=== PATIENT | female | born 1995 | race Caucasian/White ===

== ENCOUNTER 2022-08-31 09:21 | Outpatient (CLI) | payer OTHER, SELFPAY ==
--- NOTE | 2022-09-09 20:50 | WPDHOMESLEEP ---
Sleep Study - Home Unattended Date of Study: 08/31/22 Ordering Provider: Janneth Morris NP Interpreting Provider: Taisha Torres, DO Home Sleep Study Type: Watch PAT Height: 1.63 m Weight: 102.058 kg Body Mass Index: 38.6 Neck Circumference (inches): 15 Iva: 15 Reason for Sleep Study Difficulty staying asleep Sleep History The patient is a 27-year-old female with anxiety and history of tobacco use that had a sleep study ordered by her primary care for evaluation of sleep disturbances. The patient occasionally awakens from sleep short breath. She constantly awakens at night with heartburn, belching or cough. She frequently snores and is frequently loud enough others complain. She occasionally has trouble sleeping when she has a cold. He occasionally wakes up gasping for air throughout the night. She frequently has breathing problems at night observed by herself or others. She frequently sweats excessively at night. She frequently has heart palpitations or irregular heartbeats during the night. He rarely falls asleep during the day and rarely falls asleep while driving. She occasionally experiences loss of muscle tone when extremely emotional. She occasionally has trouble at school or work due to sleepiness. She denies sleep paralysis. She frequently experiences vivid dreamlike scenes upon awakening or falling asleep. He occasionally has anxiety of going to sleep. She occasionally has nightmares and frequently remembers her dreams. She frequently has thoughts racing through her mind. She rarely feels sad or depressed. She constantly has anxiety. She frequently has muscular tension. She occasionally notices parts of her body jerk. She denies having crawling and aching feelings in her legs and denies having leg pain during the night. She denies grinding her teeth during sleep rarely awakens morning jaw pain. She is rarely bothered by pain during the day and rarely awakened by pain during the night. She frequently wakes up feeling stiff in the morning. She frequently wakes up with sore or achy muscles. She frequently wakes up with pain in the neck, spine other joints. She goes to bed between 9-930 p.m. on weekdays and weekends. It takes her 30-60 minutes to fall asleep. She wakes up 2-5 times throughout the night for unknown reasons and is able to fall back asleep within 10 minutes. She wakes up at 5:30 a.m. on weekdays and at 9:00 a.m. weekends. She typically gets 6-8 hours of sleep per night. She will stay in bed for less than 15 minutes after waking up in the morning. She currently lives with her , parents and sibling. She does not consume any caffeinated beverages within 2 hours of bedtime. She does not engage in physical exercise before bedtime. She denies reading and watching television before falling asleep. She denies taking naps in the afternoon or the evening. She consumes 16 oz of caffeinated beverage per day. He drinks 16 oz of an alcoholic beverage every 3-4 weeks. She quit smoking cigarettes 6 years ago. She denies recreational drug use. Sleep Procedure The sleep study was completed using [employer] a technically adequate device with seven channels: peripheral arterial tone, actigraphy, body position, snore, respiratory movement, pulse oximetry, sleep staging, and heart rate. Prior to using the device, the patient received verbal and written instructions for its application and was provided with the help desk phone number for additional telephonic instruction with 24-hour availability of qualified personnel to answer questions. The study was scored using CMS guidelines. Sleep Architecture The patient had a total recording time of 7 hours 32 minutes and total sleep time 6 hours 26 minutes. The sleep efficiency was 85.32%. Sleep latency was 19 minutes and REM latency was 130 minutes. The patient had 10 awakenings. The patient spent 56.12% of total sleep time in light sleep, 23.95% of total slee
[2022-09-09 21:01] VITALS: BMI 38.6
== END 2022-09-01 12:12 | disposition home or self-care (01) ==
LOC: ANHCSM 09:22
PROVIDERS: Visit Provider Nurse Practitioner
DX: G47.10 Hypersomnia, unspecified (principal); G47.33 Obstructive sleep apnea (adult) (pediatric)
CPT/HCPCS: 95800

== ENCOUNTER 2024-04-29 17:06 | Emergency (ER) | payer OTHER, SELFPAY ==
--- NOTE | ~2024-04-29 | XR_ITS ---
HISTORY: twisted left ankle today COMPARISON: None TECHNIQUE: 3 views of the left ankle FINDINGS: No acute fracture is identified. Soft tissue swelling along the medial and lateral malleolus. Ossification of the insertion of the Achilles tendon is noted. Bone mineralization is age-appropriate. IMPRESSION: Soft tissue swelling without acute fracture Reviewed, dictated and finalized at location A. [employer] PREVENTIONIST
[2024-04-29 17:30] VITALS: BP 154/98; PULSE 105; RESP 16; TEMP 36.9; O2SAT 99
--- NOTE | 2024-04-29 17:32 | ED.LOWEXIN ---
HPI - Extremity Injury (Lower) General Chief Complaint: Extremity Injury, Lower <Zora Corbin PA-C - Last Filed: 04/30/24 14:48> Stated Complaint: L ANKLE INJURY <LILLIAN Lundberg Last Filed: 04/30/24 14:48> Time Seen by Provider: 04/29/24 17:32 <Zora Corbin PA-C - Last Filed: 04/30/24 14:48> Focused HPI: This is a 28 year old female that presents to the ER for left ankle injury. Sustained just prior to arrival. Reports she fell down a couple of steps and twisted the left ankle. She did not hit her head or lose consciousness. She has not been able to ambulate since without pain. GENERAL: Well-appearing, well-nourished, and in no acute distress. HEAD: Normocephalic, atraumatic. CHEST: Clear to auscultation. ?No respiratory distress. HEART: Regular rate and rhythm.? NEURO: ?Alert and oriented x3. Patient screened in triage and initial orders placed.? ?Additional care and disposition to be based upon?diagnostic testing and treatment. <LILLIAN Lundberg Last Filed: 04/30/24 14:48> Source: patient <LILLIAN Ng Last Filed: 04/29/24 21:01> Mode of arrival: ambulatory <LILLIAN Ng Last Filed: 04/29/24 21:01> Limitations: no limitations <LILLIAN Ng Last Filed: 04/29/24 21:01> History of Present Illness HPI Narrative: Agree with triage note above <LILLIAN Ng Last Filed: 04/29/24 21:01> Related Data Home Medications: Home Medications ?Medication ?Instructions ?Recorded ?Confirmed ?Last Taken ?Type cholecalciferol (vitamin D3) 50 50 mcg PO DAILY 06/28/22 07/27/22 Unknown History mcg (2,000 unit) capsule multivitamin (Daily Multi-Vitamin 1 tablet PO DAILY 11/17/23 Unknown History tablet) <LILLIAN Lundberg Last Filed: 04/30/24 14:48> Allergies/Adverse Reactions: Allergies Allergy/AdvReac Type Severity Reaction Status Date / Time nickel Allergy Mild Rash Verified 04/29/24 17:06 <Zora Corbin PA-C - Last Filed: 04/30/24 14:48> Review of Systems Review of Systems: All systems as dictated in HPI <Nitish Liu PA-C - Last Filed: 04/29/24 21:01> PMFSH Past Medical History Medical History: Medical History (Updated 04/30/24 @ 00:01 by Ros Santiago) Heavy menses MARGARET (obstructive sleep apnea) Vitamin D deficiency Anxiety (~11/2019) <LILLIAN Lundberg Last Filed: 04/30/24 14:48> Surgical History Surgical History: Surgical History Hx of tonsillectomy (~1998) <Zora Corbin PA-C - Last Filed: 04/30/24 14:48> Family History Family History: Family History Mother Asthma Father Hypertension Grandparent , 51 Cancer Ovarian cancer Colon cancer Grandparent Acute myocardial infarction Other Dementia <Zora Corbin PA-C - Last Filed: 04/30/24 14:48> Social History Social History: Social History Social History: 1-2 cups of coffee per day Smoking packs per day: 0.1 Smoking cigarettes per day: 2.0 Smoking status: Former smoker Smoking end date: 04/24/16 Alcohol intake: current Alcohol use details: occasionally Substance use: never Substance use type: does not use Lack of Transportation: No Lack of Food: Never True Current Housing: I Have Housing Concerned About Future Housing: No Difficulty Paying Gas/Electric Bills: No Difficulty Paying for Meds: No Currently Unemployed: No Education: Master's Degree or Higher Difficulty w/ Childcare or Family Care: No <Zora Corbin PA-C - Last Filed: 04/30/24 14:48> Exam Narrative: GENERAL: Well-appearing, well-nourished, and in no acute distress. HEAD: Normocephalic, atraumatic. MSK: Left ankle with moderate swelling and difficulty with range of motion. No bruising or crepitus. Neurovascularly intact distally. Tender throughout the left ankle joint Benign right ankle SKIN: Warm, dry, no rash. NEURO: Alert and oriented x4. No focal deficits. PSYCH: Normal mood and affect. <Nitish Liu PA-C - Last Filed: 04/29/24 21:01> Course Vital Signs Vital signs: Vital Signs Temperature 98.5 F 04/29/24 17:30 Pulse Rate 105 H 04/29/24 17:30 Respiratory Rate 16 04/29/24 17:30 Blood Pressure 154/98 H 04/29/24 17:30 Pulse Oximetry 99 04/29/24 17:30 Oxygen Delivery Room Air 04/29/24 17:30 Temperature 97.8 F 04/29/24 21:41 Pulse Rate 88 04/29/24 21:41 Respiratory Rate 16 04/29/24 21:41 Blood Pressure 147/96 H 04/29/24 21:41 Pulse Oximetry 99 04/29/24 21:41 Oxygen Delivery Room Air 04/29/24 17:30 <Zora Corbin PA-C - Last Filed: 04/30/24 14:48> Vital Signs Temperature 98.5 F 04/29/24 17:30 Pulse Rate 105 H 04/29/24 17:30 Respiratory Rate 16 04/29/24 17:30 Blood Pressure 154/98 H 04/29/24 17:30 Pulse Oximetry 99 04/29/24 17:30 Oxygen Delivery Room Air 04/29/24 17:30 Temperature 97.8 F 04/29/24 21:41 Pulse Rate 88 04/29/24 21:41 Respiratory Rate 16 04/29/24 21:41 Blood Pressure 147/96 H 04/29/24 21:41 Pulse Oximetry 99 04/29/24 21:41 Oxygen Delivery Room Air 04/29/24 17:30 <LILLIAN Ng Last Filed: 04/29/24 21:01> MDM - Extremity Injury (Lower) MDM Narrative Medical decision making narrative: This is a 28-year-old female who presents to the ED for chief complaint of left ankle injury. Vitals are normal. Exam remarkable for the above. Left ankle x-rays are negative for acute fracture. Consistent with ankle sprain. Crutches and Humberto wrap given here. Patient was also given dose of Motrin and Tylenol here. Patient will be discharged in stable condition. Supportive measures discussed and return precautions given. Patient is understanding and agreeable with plan for discharge with PCP follow-up. <Nitish Liu PA-C - Last Filed: 04/29/24 21:01> Imaging Data Radiologist's impression: ITS Impressions Ankle X-Ray 04/29/24 18:23 IMPRESSION: Soft tissue swelling without acute fracture <LILLIAN Lundberg Last Filed: 04/30/24 14:48> Critical Care Time Critical Care Time Critical Care Time: No <LILLIAN Lundberg Last Filed: 04/30/24 14:48> Discharge Plan Discharge Clinical Impression: Ankle sprain and strain <LILLIAN Lundberg Last Filed: 04/30/24 14:48> Patient Disposition: Home, Self-Care <LILLIAN Lundberg Last Filed: 04/30/24 14:48> Condition: Stable <LILLIAN Lundberg Last Filed: 04/30/24 14:48> Instructions: Antibiotic Form, Ankle Sprain (ED) <LILLIAN Lundberg Last Filed: 04/30/24 14:48> Additional Instructions: Your exam today is reassuring. There is no fracture. This is probably an ankle sprain which will take several weeks to fully heal. Use crutches as needed and progress to weight-bearing as tolerated. Continue with ibuprofen 600 mg and Tylenol 500 mg at home for pain and swelling. If you have any new or worsening symptoms please return to the ER for further evaluation. <LILLIAN Lundberg Last Filed: 04/30/24 14:48> Patient Language: [place]orese <LILLIAN Lundberg Last Filed: 04/30/24 14:48> Prescriptions: No Action cholecalciferol (vitamin D3) 50 mcg (2,000 unit) capsule 50 mcg PO DAILY multivitamin [Daily Multi-Vitamin] Tablet 1 tablet PO DAILY bupropion HCl [Wellbutrin XL] 300 mg tablet extended release 24 hr 300 mg PO QAM Qty: 30 5RF <Zora Corbin PA-C - Last Filed: 04/30/24 14:48> Follow-up/Referrals: Leonard Rayo MD [Primary Care Provider] - <Zora Corbin PA-C - Last Filed: 04/30/24 14:48> Time of Disposition: 21:01 <Zora Corbin PA-C - Last Filed: 04/30/24 14:48> 21:01 <Nitish Liu PA-C - Last Filed: 04/29/24 21:01>
[2024-04-29] MEDS: ACETAMINOPHEN 325 MG TABLET 650 MG PO (21:31)
[2024-04-29] MEDS: IBUPROFEN 600 MG TABLET PO (21:31)
[2024-04-29 21:41] VITALS: BP 147/96; PULSE 88; RESP 16; TEMP 36.6; O2SAT 99
--- OUTSIDE RECORDS SUMMARY | 2024-05-06 03:51 | XMS_ITS | Clinical Summary ---
Author Organization [facility] Address [address] [place] [address] Care Team Providers Care Director Distribution Name Role Phone Unavailable Primary Care Provider Unavailabl e Source Comments [facility],non-owned Affiliates and Associated Physician Practices is amultiple site organization consisting of ambulatory clinics and hospital sitesin [place], [place], [place] and [place]. This disclosure is being madepursuant to the Care Everywhere program and may not contain all information available regarding this patient. Last updated 18.[facility] [employer] Allergies No known active allergies Medications Be aware that medications may not be up to date on this document. Always verify current medications with the patient. No known medications Active Problems Problem Noted Date Diagnosed Date BMI 26.0-26.9,adult 10/08/2014 Immunizations Name Administration Dates Next Due DPT 11/16/2001, 8,02/20/1997,1996, 1996 HEP B VACCINE, PED/ADOL 05/23/1997,1996, HIB BOOSTER 02/27/1998,02/20/1997,1996 ,1996 MENINGOCOCCAL CONJUGATE (MCV4P) 10/08/2014 MMR 11/16/2001,08/22/1997 POLIO IPV 11/16/2001 POLIO OPV 02/20/1997,1996,1996 PPD 11/16/2001,08/22/1997 TDAP (7yrs+) 11/21/2016,11/10/2006 VARICELLA 11/10/2006,11/28/1997 Social History Tobacco Use Types Packs/Day Years Used Date Smoking Tobacco: Never Smokeless Tobacco: Never Alcohol Use Standard Drinks/Week Comments Not Asked 0 (1 standard drink = 0.6 oz pur e alcohol) Sex and Gender Information Value Date Recorded Sex Assigned at Not on file Gender Identity Not on file Sexual Orientation Not on file Last Filed Vital Signs Vital Sign Reading Time Taken Comments Blood Pressure 138/62 11/21/2016 10:05 AM CDT Pulse 117 04/24/2016 10:09 AM [facility] UN[facility] NURSE Temperature 36.9 ??C (98.4 ??F) 11/21/2016 10:05 AM C DT Respiratory Rate 16 04/24/2016 10:09 AM NEONATAL INTENSIVE CARE UNIT NURSE Oxygen Saturation - - Inhaled Oxygen Concentration - - Weight 81.5 kg (179 lb 9.6 oz) 11/21/2016 10:05 AM CDT Height 161.3 cm (5' 3.5 ) 11/21/2016 10:05 AM CD T Body Mass Index 31.32 11/21/2016 10:05 AM CDT Plan of Treatment Health Maintenance Due Date Last Done Comments PAP SMEAR 1996 HIV SCREENING 08/20/2011 HEPATITIS C SCREENING 08/15/2014 COVID-19 VACCINE ( season) 2023 INFLUENZA VACCINE (#1) 2023 DEPRESSION SCREENING 04/24/2024 DTAP/TDAP/TD VACCINES (8 - Td or Tdap) 11/21/2026 11/21/2016, 11/10/2006, 11/16/2001, Additional history exists ZOSTER VACCINE (1 of 2) 2046 HEPATITIS B VACCINE Completed 05/23/1997, 1996, 1996 HIB VACCINE Completed 02/27/1998, 01/24, 1996, Additional history exists MENINGOCOCCAL VACCINE Completed 10/08/2014 HPV VACCINE Discontinued MENINGOCOCCAL (Group B) VACCINE Aged Out No longer eligible based on patient's age to complete this topic PNEUMOCOCCAL VACCINE Aged Out No long er eligible based on patient's age to complete this topic Goals Goal Patient Goal Type Associated Problems Recent Progress Patient-Stated? Author Exercise 3X per week (30 min per time) Exercise No Alondra Wills MD Note: Caring for Your Overweight Child Get Moving: ? ? It is recommended that children and teens get physical activity for at least 1 hour per day on most (or better yet, all) days of the week. That may sound like a lot, especially if your child is not getting any physical activity now. But physical activity means more than exercise. It can mean playing games in the backyard, or washing the car. It can mean picking up leaves, or walking the dog. Add the healthy habit of physical activity to your family? s schedule. ? ? When children take off weight through dieting alone, 80 percent of the loss is from fatty tissue and 20 percent is from muscle. Adding weight-resistance training to an exercise routine preserves the muscle tissue. Virtually every ounce dropped comes from fat. Once an adolescent meets her goal, regular exercise is essential for maintaining the desired weight. Where can I go for more information? [place] [employer] ( ) www.aap.org HealthyChildren.org www.healthychildren.org U.S. Department of Health and Human Services www.hhs.gov Website and free downloadable nadja for smartphones: http://www.[employer]/ Use safety retraint in car Lifestyle On track( 017 10:08 AM CDT) No Alondra Wills MD Note: ?? Seat belt laws should apply to all vehicle occupants JUNIEKRISTAN Adan Personal/Famil y 1995 [place] EM[place] CEJA [address] [place] [id number]
--- OUTSIDE RECORDS SUMMARY | 2024-05-06 03:51 | XMS_ITS | Encounter Summary ---
Author Organization [facility] Address [address] [place] [address] Care Team Providers Care Platform Engineer Name Role Phone Unavailable Primary Care Provider Unavailabl e Reason for Visit * Reason Comments Complete Physical Exam college physical Encounter Details Date Type Department Care Team (Late st Contact Info) Description 10/08/2014 9:30 AM CDT Office Visit [facility] - Pediatrics [address] [place] [phone] Alondra Wills MD [address] [place] [phone] Routine general medical examination at a health care facility (Primary Dx); Need for other specified prophylactic vaccination against single bacterial disease; BMI 26.0-26.9,adult Social History Tobacco Use Types Packs/Day Years Used Date Smoking Tobacco: Never Smokeless Tobacco: Never Alcohol Use Standard Drinks/Week Comments Not Asked 0 (1 standard drink = 0.6 oz pur e alcohol) Sex and Gender Information Value Date Recorded Sex Assigned at Not on file Gender Identity Not on file Sexual Orientation Not on file documented as of this encounter Last Filed Vital Signs Vital Sign Reading Time Taken Comments Blood Pressure 128/68 10/08/2014 9:37 AM CDT Pulse 100 10/08/2014 9:37 AM CDT Temperature 36.6 ??C (97.9 ??F) 10/08/2014 9:37 AM CD T Respiratory Rate - - Oxygen Saturation - - Inhaled Oxygen Concentration - - Weight 70.4 kg (155 lb 3.2 oz) 10/08/2014 9:37 A M CDT Height 162.6 cm (5' 4 ) 10/08/2014 9:37 AM CDT Body Mass Index 26.64 10/08/2014 9:37 AM CDT Body Mass Index Percentile 88.20% 10/08/2014 9:3 7 AM CDT Growth Chart: CDC (Girls, 2- 20 Years) documented in this encounter Patient Instructions * Patient Instructions* Charlotte Alfred RN - 10/08/2014 9:40 AM CDT YOUR GROWING CHILD: ADOLESCENT Child???s Name: Dylan Ceja Today???s Date: 10/08/2014 Blood pressure percentiles are 95% systolic and 58% diastolic based on 2000 NHANES data. Wt Readings from Last 3 Encounters: 10/08/14 70.398 kg (155 lb 3.2 oz) (87 %*, Z = 1.14) 12/17/13 78.654 kg (173 lb 6.4 oz) (94 %*, Z = 1.60) 11/29/10 73.12 kg (161 lb 3.2 oz) (95 %*, Z = 1.64) * Growth percentiles are based on CDC 2-20 Years data. Ht Readings from Last 3 Encounters: 10/08/14 1.626 m (5' 4 ) (47 %*, Z = -0.08) 11/29/10 1.6 m (5' 3 ) (44 %*, Z = -0.14) * Growth percentiles are based on CDC 2-20 Years data. Body mass index is 26.63 kg/(m^2). 88%ile (Z=1.18) based on CDC 2-20 Years BMI-for-age data using vitals from 10/08/2014. 87%ile (Z=1.14) based on CDC 2-20 Years yrazco-vnw-rvk data using vitals from 10/08/2014. 47%ile (Z=-0.08) based on CDC 2-20 Years jvhmmrr-udp-pdx data using vitals from 10/08/2014. IMMUNIZATIONS At the time of high school physical you will receive a Tdap booster. Other immunizations which we recommend, but that are not required are Menactra (protects again one type of bacterial meningitis), Gardisil (protects girls and women against Human Papilloma Virus), and Hepatitis A vaccine if not already given. PROMOTION OF HEALTHY AND SAFE HABITS: Try to get 8 hours of sleep a night. Engage in moderately strenuous to vigorous physical activity (e.G walking, biking, aerobics for 30 - 60 minutes at least three times a week). Limit TV viewing, computer and video games. Practice time management skills. INJURY AND VIOLENCE PREVENTION: Always wear safety belt when driving or riding in a car. If you are driving, insist that your passengers wear safety belts. Follow the speed limit and drive responsibly. Concentrate when driving and avoid distractions(e.g talking on the phone, texting, playing loud music,eating). Do not drink alcohol, especially when driving, swimming, boating or operating farm equipment or other machinery. Plan to ride with a designated auto transport driver or to call for a ride if drinking. Write and sign a no drinking and driving contract with your parents. Learn how to swim(if you haven't already learned). Learn first aid and CPR. Reduce your risk of developing skin cancer by limiting time in the sun and applying sunscreen before going outside. Avoid tanning salons. Help your parents test smoke alarms in your home to be sure they work properly, and help change the batteries yearly. Know what to do in case of fire or other emergency. Review fire safety plans at home. Always wear a helmet when riding on a motorcycle, bike, or all-terrain vehicle. However, ATV's and motorcycles are dangerous, even with a helmet. Wear protective gear(e.g eye protection, mouth guard,helmet, knee and elbow pads) for sports and other physical activities such as in-line skating. Wearappropriate protective gear at work and follow job safety procedures. Avoid high noise levels, especially when using ear phones. Do not carry or use a weapon of any kind. Develop skills in conflict resolution, negotiation, and dealing with anger constructively. Learn techniques to protect yourself from physical, emotional, and sexual abuse or rape. Seek help if you are physically or sexually abused or fear that you are in danger. MENTAL HEALTH: Take on new challenges that will increase your self confidence. Continue to develop your sense of identity, clarifying your values and beliefs. Accept who you are and enjoy both the child and adult in you. Trust your own feelings, and also listen to the ideas of good friends and valued adults. Seekhelp if you often feel angry, depressed, or hopeless. Learn how to deal with stress. Set reasonablebut challenging goals. Understand the importance of your spiritual needs and try to fulfill them. NUTRITION: Choose and prepare a variety of healthy foods. Eat three nutritious meals a day at regularly scheduled times; breakfast is especially important. Select a nutritious lunch from the school cafeteria orpack a balanced lunch. Choose plenty of fruits and vegetables;breads, cereals, and other whole grain products; low-fat dairy; lean meats, chicken, fish and foods prepared with little or not fat. Include foods rich in calcium and iron in your diet. Choose nutritious snacks that are rich in complex carbohydrates. Limit high-fat or low-nutrient foods and beverages such as candy, chips, or soft drinks. Achieve and maintain a healthy weight. Manage weight through eating habits and regular physical ac tivity. ORAL HEALTH: [place] your teeth twice a day with a pea-size amount of fluoridated toothpaste, and floss between your teeth daily. Schedule a dental appointment every 6 months or as advised, ask your dental professional how to handle dental emergencies, especially the loss or fracture of a tooth. Do not smoke or use chewing tobacco. SEXUALITY: Identify a supportive adult who can give you accurate information about sex. Ask the health professional for information on sexual development and maturity, contraception, and prevention of sexually transmitted diseases. Discuss any questions you have. If you are confused or concerned about your sexual feelings( for the same or opposite sex), talk with the health professional or a trusted adult. Recognize that sexual feelings are normal, but having sex should be a jwsr-ogqmxdf-pqt decision. Delay having sex until you and your partner are mature enough to assume responsibility for sexual relations. Share your feelings about sexuality with your partner. Abstaining from sexual intercourse is the safest way to prevent and sexually transmitted diseases, including HIV/AIDS. Learn ways to resist sexual pressures and say no to sex. If you are sexually active, discuss contraceptivemethods and STD prevention with your doctor. Learn about and practice safer sex. Limit the number of partners and use latex condoms and other barriers correctly. PREVENTION OF SUBSTANCE USE/ABUSE: Do not smoke, use smokeless tobacco, drink alcohol, or use drugs, inhalants, diet pills, or steroids. Do not become involved in selling drugs. If you smoke, talk with the health professional about how to stop smoking. If you use drugs or alcohol, discuss this with your health professional and ask for help. Support your friends who choose not to use tobacco, alcohol, drugs, steroids, or diet pills. PROMOTION OF SOCIAL COMPETENCE: Spend time with your family doing things you all enjoy.Participate in social activities, community groups, or team sports.Make sure you understand the limits your parents have set and the consequences they have established for unacceptable behavior. Talk with your family and friends about your strategies and coping mechanisms for handling negative peer pressure. Continue your progress in making independent decisions and understanding the consequences of your behavior. PROMOTION OF RESPONSIBILITY: Respect the rights and needs of others. Follow family rules, such as those for curfews or driving. Share in machine stitcher. Learn about how you can take on new responsibility in your family, peer group, and community. Learn new skills(e.g lifesaving, peer mentoring) that can be useful in helping your friends, familyor community. Talk to your health professional about taking responsibility for you own health and becoming fully informed about preventive health services. PROMOTION OF SCHOOL ACHIEVEMENT: Be responsible for your own school attendance, home work , course selection and extracurricular activities. If you feel frustrated with school or are thinking about dropping out, discuss your feelings with a trusted adult. Identify talents and interests that you want to pursue for a career or for personal enrichment. Make plans for after high school(e.g college options, vocational training, the , other career choices) PROMOTION OF COMMUNITY INTERACTION: Participate in social, oriental orthodox, cultural, volunteer or recreational activities. Advocate for community programs(recreational, athletic, artistic, and educational activities) Talk with friends and family about current events and community responsibilities such as voting, conservation and recycling. Explore your cultural heritage and learn about other cultures. Participate in culturally diverse activities. SUGGESTED INTERNET-SAFETY WEB SITES: Don't consume more than two hour of entertainment media. Avoid having a TV or computer in your room. www.MST: A great site for older teens that includes ways to communicate with peers when they experience online bullying that is not cool . www.Rainbow.org: A site for younger and older teens, as well as parents, with many suggestions oninternet safety www.ipnexus.Pfeffermind Games: A site presented by the [facility] for Missing and Exploited Children with information for kids, teens and parents, much of it focused on avoiding cyber bullying. documented in this encounter Progress Notes * Alondra Wills MD - 10/08/2014 9:54 AM CDT Adolescent WCC Reviewed Nurse's Adolescent Note PHX: overweight Medications: none ROS --has gotten more active in the past year, decreased portion sizes Stomachaches, Headaches: No Constipation/Diarrhea: No Girls: Menses Yes: regular, lasts 6 days Social History: School: going to attend [employer]. Home: will be moving to [place], [place] in November, excited about starting college Activity/Exercise: good Alcohol: denies Drugs:denies Sex:denies Smoking:denies Jnvktpczhk-EGA-7 score : see screening section Physical Exam: Wt Readings from Last 3 Encounters: 10/08/14 70.398 kg (155 lb 3.2 oz) (87 %*, Z = 1.14) 12/17/13 78.654 kg (173 lb 6.4 oz) (94 %*, Z = 1.60) 11/29/10 73.12 kg (161 lb 3.2 oz) (95 %*, Z = 1.64) * Growth percentiles are based on CDC 2-20 Years data. Ht Readings from Last 3 Encounters: 10/08/14 1.626 m (5' 4 ) (47 %*, Z = -0.08) 11/29/10 1.6 m (5' 3 ) (44 %*, Z = -0.14) * Growth percentiles are based on CDC 2-20 Years data. 87%ile (Z=1.14) based on CDC 2-20 Years wfqoye-jcd-iml data using vitals from 10/08/2014. 47%ile (Z=-0.08) based on CDC 2-20 Years hrguihr-yjo-uun data using vitals from 10/08/2014. BP 128/68 mmHg Pulse 100 Temp(Src) 97.9 ??F (Temporal) Wt 70.398 kg (155 lb 3.2 oz) BMI 26.63 kg/m2 Blood pressure percentiles are 95% systolic and 58% diastolic based on 2000 NHANES data. GENERAL: Alert, NAD EYES: PERRLA, EOMI, red reflex bilaterally EARS: TM's wnl NOSE: nasal passages clear NECK: supple, no masses, no lymphadenopathy RESP: clear to auscultation bilaterally CV: RRR, normal S1/S2, no murmurs, clicks, or rubs. ABD: soft, nontender, no masses, no hepatosplenomegaly, normal bowel sounds : normal female exam, Hong V EXTREMITIES: Full range of motion of all extremities SPINE: Straight SKIN: no rashes or lesions Impression: 1. Well child with normal growth and development. 2. BMI >25 3. overweight Plan: Anticipatory guidance discussed included nutrition, safety, dentist, exercise. Vaccines: Meningococcal BMI> 85%: Yes Classification of weight: overweight Blood Pressure interpretation: normal 2/3. Discussed that weight has been decreasing!--keep up the good work Follow up in 1 year. * Charlotte Alfred RN - 10/08/2014 9:40 AM CDT Nurse Adolescent Screen Parental/Patient Concerns: none Diet: Milk 2%, 8 ounces per day. +cheese, yogurt, smoothies Vegetables: good, fruits: good, Dental: regular dental visits? Yes documented in this encounter Plan of Treatment Not on file documented as of this encounter Goals Goal Patient Goal Type Associated Problems [...] Where can I go for more information? [employer] ( ) www.aap.org HealthyChildren.org www.healthychildren.org U.S. Department of Health and Human Services www.hhs.gov Website and free downloadable nadja for smartphones: http://www.[employer] ([place]/ Use safety retraint in car Lifestyle On track( 017 10:08 AM CDT) No Alondra Wills MD Note: ?? Seat belt laws should apply to all vehicle occupants documented as of this encounter Visit Diagnoses Diagnosis Routine general medical examination at a health care facility- Primary Need for other specified prophylactic vaccination against single bacterial disease BMI 26.0-26.9,adult Body Mass Index 26.0-26.9, adult documented in this encounter
--- OUTSIDE RECORDS SUMMARY | 2024-05-06 03:51 | XMS_ITS | Encounter Summary ---
Author Organization [facility] Address [address] [place] [address] Care Team Providers Care Airbrush Artist Photography Name Role Phone Alondra Wills MD Primary Care Provider [phone] Reason for Visit * Reason Onset Date Comments Record Request 11/24/2016 Encounter Details Date Type Department Care Team (Late st Contact Info) Description 11/24/2016 Telephone [facility] - Pediatrics [address] [place] [phone] Alondra Wills MD [address] [place] [phone] Record Request Social History Tobacco Use Types Packs/Day Years Used Date Smoking Tobacco: Never Smokeless Tobacco: Never Alcohol Use Standard Drinks/Week Comments Not Asked 0 (1 standard drink = 0.6 oz pur e alcohol) Sex and Gender Information Value Date Recorded Sex Assigned at Not on file Gender Identity Not on file Sexual Orientation Not on file documented as of this encounter Miscellaneous Notes * Telephone Encounter - Mia Giron RN - 11/24/2016 4:59 PM CDT Done per pt's request. * Telephone Encounter - Meera Craig - 11/24/2016 4:07 PM CDT Pt called requesting for immunization record to be faxed to [facility] at [phone]. No Attn: needed. Thanks documented in this encounter Plan of Treatment [...] Where can I go for more information? [employer] ( ) www.aap.org HealthyChildren.org www.healthychildren.org U.S. Department of Health and Human Services www.hhs.gov Website and free downloadable nadja for smartphones: http://www.Health News.RupeeTimes/ Use safety retraint in car Lifestyle On track( 017 10:08 AM CDT) No Alondra Wills MD Note: ?? Seat belt laws should apply to all vehicle occupants documented as of this encounter Visit Diagnoses Not on filedocumented in this encounter Care Teams Airbrush Artist Photography Relationship Specialty Start Date End Date Alondra Wills MD PCP - General Pediatrics 11/21/16 11/29/18 documented as of this encounter
--- OUTSIDE RECORDS SUMMARY | 2024-05-06 03:51 | XMS_ITS | Clinical Summary ---
Author Organization [facility] Address [address] [place] [address] Care Team Providers Care Imagery Intelligence Name Role Phone Provider, None Primary Care Provider Unavailabl e Allergies No known active allergies Medications FLUoxetine (PROzac) 20 MG Capsule TAKE 1 CAPSULE BY MOUTH ONCE DAILY 04/25/2021 Active Active Problems No known active problems Social History Tobacco Use Types Packs/Day Years Used Date Smoking Tobacco: Never Smokeless Tobacco: Never Comments No Sex and Gender Information Value Date Recorded Sex Assigned at Not on file Legal Sex 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 Gender Identity Not on file Sexual Orientation Not on file Last Filed Vital Signs Vital Sign Reading Time Taken Comments Blood Pressure 135/84 07/21/2021 2:30 PM CDT Pulse 84 07/21/2021 2:30 PM CDT Temperature 36.9 ??C (98.4 ??F) 04/30/2021 5:12 PM CS T Respiratory Rate 20 07/21/2021 2:30 PM CDT Oxygen Saturation 97% 07/21/2021 2:30 PM CDT Inhaled Oxygen Concentration - - Weight 93 kg (205 lb) 07/21/2021 2:30 PM CDT Height 162.6 cm (5' 4 ) 07/21/2021 2:30 PM CDT Body Mass Index 35.19 07/21/2021 2:30 PM CDT Plan of Treatment Health Maintenance Due Date Last Done Comments Hepatitis C Virus (HCV) Screening 1996 Pap Smear 2017 Influenza Immunization (#1) 2023 SARS-COV-2 Immunization ( season) 2023 06/30/2020, 06/09/2020 Respiratory Syncytial Virus (RSV) Immunization (Adult) (1 - 1-dose 75+ series) 08/20/2071 Hepatitis B Immunization Completed 998, 1996, 1996 Meningococcal Immunization (ACWY) Completed 10/08/2014 DTaP/Tdap/Td Immunization Discontinued 2016, 11/10/2006 TdaP Immunization Completed 11/21/2016, 11/10/2006 Pneumococcal Immunization Combined Aged Out No longer eligible based on patient's age to complete this topic Rotavirus Immunization Aged Out No lo nger eligible based on patient's age to complete this topic Insurance [facility] Care Teams Imagery Intelligence Relationship Specialty Start Date End Date Provider, None KARTHIKEYAN PCP - General 05/01/21
--- OUTSIDE RECORDS SUMMARY | 2024-05-06 03:51 | XMS_ITS | Referral Summary ---
Author Organization [facility] Address [address] [place] [address] Care Team Providers Care Mobile Application Engineer Name Role Phone Unavailable Primary Care Provider Unavailabl e Source Comments [facility],non-owned Affiliates and Associated Physician Practices is amultiple site organization consisting of ambulatory clinics and hospital sitesin [place], [place], [place] and [place]. This disclosure is being madepursuant to the Care Everywhere program and may not contain all information available regarding this patient. Last updated 18.[facility] Allergies No known active allergies Medications Be [...] AM CDT Pulse 117 04/24/2016 10:09 AM CASTING INSPECTOR Temperature 36.9 ??C (98.4 ??F) 11/21/2016 10:05 AM C DT Respiratory Rate 16 04/24/2016 10:09 AM CASTING INSPECTOR Oxygen Saturation - - Inhaled Oxygen Concentration - - Weight 81.5 kg (179 lb 9.6 oz) 11/21/2016 10:05 AM CDT Height 161.3 cm (5' 3.5 ) 11/21/2016 10:05 AM CD T Body Mass Index 31.32 11/21/2016 10:05 AM CDT Plan of Treatment Not on file Goals Goal Patient Goal Type Associated Problems [...] Where can I go for more information? [employer] ( ) www.aap.org HealthyChildren.org www.healthychildren.org U.S. Department of Health and Human Services www.hhs.gov Website and free downloadable nadja for smartphones: http://www.Eventap/ Use safety retraint in car Lifestyle On track( 017 10:08 AM CDT) Alondra Workman MD Note: ?? Seat belt laws should apply to all vehicle occupants KRISTAN CEJA Personal/Famil y 1995 [address] [place] [address]
--- OUTSIDE RECORDS SUMMARY | 2024-05-06 03:51 | XMS_ITS | Encounter Summary ---
Author Organization [facility] Address [address] [place] [address] Care Team Providers Care Export Packer Name Role Phone Anika Bob MD Unavailable Reason for Referral * Evaluate & Treat Specialty Diagnoses / Procedures Referred By Contac t Referred To Contact Anika Bob MD [address] [place] [address] Joselito Sullivan MD [address] [place] [address] [place] [address] Referral ID Status Reason Start Date Expiration Date V isits Requested Visits Authorized Specialty Services Required Reason for Visit * Reason Comments Pain Wrist right Encounter Details Date Type Department Care Team (Late st Contact Info) Description 11/09/2009 4:10 PM CDT Office Visit [facility] - Pediatrics [address] [place] [phone] Anika Bob MD [address] [place] [address] Wrist Pain (Primary Dx) Social History Tobacco Use Types Packs/Day Years Used Date Smoking Tobacco: Never Assessed Sex and Gender Information Value Date Recorded Sex Assigned at Not on file Gender Identity Not on file Sexual Orientation Not on file documented as of this encounter Last Filed Vital Signs Vital Sign Reading Time Taken Comments Blood Pressure - - Pulse - - Temperature - - Respiratory Rate - - Oxygen Saturation - - Inhaled Oxygen Concentration - - Weight 81.7 kg (180 lb 3.2 oz) 11/09/2009 4:29 P M CDT Height - - Body Mass Index - - documented in this encounter Progress Notes * Anika Bob MD - 11/09/2009 4:27 PM CDT SUBJECTIVE: Dylan Ceja is a 14 y.o. female who complains of pain to the dorsum of the right wrist for about 3 weeks. Unsure what happened to it. Doesn't remember an injury. She was seen in the [facility] [place] and xrays were normal. She has been using a wrist splint since then, was seen in the office two weeks ago. Pain improved but then worsened again. OBJECTIVE: Wt 81.738 kg (180 lb 3.2 oz) She appears well, vital signs are normal. There is No swelling and No tenderness over the right wrist. No tenderness otherwise. There are normal distal neurovascular findings. There are no obvious bone deformities or unstable joints. The rest of the extremity is normal. ASSESSMENT: Wrist pain PLAN: rest the injured area as much as practical, referral to hand surgeon for this injury documented in this encounter Plan of Treatment Scheduled Referrals Name Type Priority Associated Diagnoses Orde r Schedule AMB REFERRAL TO PLASTIC SURGERY Outpatient Referral Routine Wrist Pain Ordered: 11/09/2009 documented as of this encounter Visit Diagnoses Diagnosis Wrist pain- Primary Pain in joint, forearm documented in this encounter Care Teams Export Packer Relationship Specialty Start Date End Date Anika Bob MD PCP - Pediatrics 03/26/09 10/07/14 documented as of this encounter
--- OUTSIDE RECORDS SUMMARY | 2024-05-06 03:51 | XMS_ITS | Encounter Summary ---
Author Organization [facility] Address [facility] [facility] [place] [address] Care Team Providers Care Amusement Park Ride Mechanic Name Role Phone Anika Bob MD Unavailable Reason for Visit * Reason Comments Pain right middle finger up to wrist x4 days Encounter Details Date Type Department Care Team (Late st Contact Info) Description 10/27/2009 3:40 PM CDT Office Visit [facility] - Pediatrics [address] [place] [phone] Anika Bob MD [address] [place] [address] Wrist Pain (Primary Dx) Social History [...] Pressure - - Pulse - - Temperature 36.7 ??C (98.1 ??F) 10/27/2009 3:58 PM CD T Respiratory Rate - - Oxygen Saturation - - Inhaled Oxygen Concentration - - Weight 81.4 kg (179 lb 6.4 oz) 10/27/2009 3:58 P M CDT Height - - Body Mass Index - - documented in this encounter Progress Notes * Anika Bob MD - 10/27/2009 4:03 PM CDT SUBJECTIVE: Dylan Ceja is a 14 y.o. female who complains of pain to the right middle finger up to wrist for 4 day(s) pain is mild. Pt seen in ER and dx'd with arthritis. States that it feels better to useace bandage. History of trauma unsure, was jumping on trampoline prior to the pain starting.fall No. Prior history of related problems: no prior problems with this area in the past OBJECTIVE: Temp (Src) 98.1 ??F (Oral) Wt 81.375 kg (179 lb 6.4 oz) She appears well, vital signs are normal. There is No swelling and No tenderness over the right hand and forearm. No tenderness otherwise. There are normal distal neurovascular findings. There are noobvious bone deformities or unstable joints. The rest of the extremity is normal. ASSESSMENT: Right forearm pain- over use injury PLAN: rest the injured area as much as practical, splint ordered F/u in two weeks if not better documented in this encounter Plan of Treatment Not on file documented as of this encounter Visit Diagnoses Diagnosis Wrist pain- Primary Pain in joint, forearm documented in this encounter Care Teams Amusement Park Ride Mechanic Relationship Specialty Start Date End Date Anika Bob MD PCP - Pediatrics 03/26/09 10/07/14 documented as of this encounter
--- OUTSIDE RECORDS SUMMARY | 2024-05-06 03:51 | XMS_ITS | Encounter Summary ---
Author Organization [facility] Address [address] [place] [address] Phone Care Team Providers Care Tailer Off Name Role Phone Unavailable Primary Care Provider Unavailabl e Reason for Visit * Reason Comments Cough Fatigue Sore Throat Encounter Details Date Type Department Care Team (Latest Contact Info) Description 04/30/2021 6:00 PM BOARDER STEAM Urgent Care Visit [facility] [address] [place] [address] Bean, Christina Tadeo, PHARMACY RESOURCE TECH, PLATER SUPERVISOR [address] [place] [address] Exposure to COVID-19 virus (Primary Dx); Cough; Symptoms of upper respiratory infection (URI) Discharge Disposition: Discharged to home or Selfcare Social History Tobacco Use Types Packs/Day Years Used Date Smoking Tobacco: Never Assessed Comments Unknown Sex and Gender Information Value Date Recorded Sex Assigned at Not on file Legal Sex Female 4:21 PM BOARDER STEAM Gender Identity Not on file Sexual Orientation Not on file COVID-19 Exposure Response Date Recorded In the last month, have you been in contact with someone who was confirmed or suspected to have Coronavirus / COVID-19? No / Unsure 04/30/2021 4:24 PM BOARDER STEAM documented as of this encounter Last Filed Vital Signs Vital Sign Reading Time Taken Comments Blood Pressure 131/82 04/30/2021 5:12 PM BOARDER STEAM Pulse 77 04/30/2021 5:12 PM BOARDER STEAM Temperature 36.9 ??C (98.4 ??F) 04/30/2021 5:12 PM CS T Respiratory Rate 20 04/30/2021 5:12 PM BOARDER STEAM Oxygen Saturation 98% 04/30/2021 5:12 PM BOARDER STEAM Inhaled Oxygen Concentration - - Weight 90.7 kg (200 lb) 04/30/2021 5:12 PM BOARDER STEAM Height 162.6 cm (5' 4 ) 04/30/2021 5:12 PM BOARDER STEAM Body Mass Index 34.33 04/30/2021 5:12 PM BOARDER STEAM documented in this encounter Patient Instructions * Patient Instructions* Christina Bean - 04/30/2021 6:00 PM BOARDER STEAM Thank you for allowing me to care for you today, below you will find information and instructions about your illness that I hope you find helpful. The treatment you received today at [facility] - was for the care of your urgent problem. The treatment may only be for the relief of symptoms. It is not a final treatment. It did not diagnose all of your diseases or conditions. This visit does not replace the care you get from your primary care doctor. Only a primary care doctor can give ongoing, comprehensive care. If you experience new or worsening symptom between now and your follow up appointment: ?? Call the [facility] Line at [phone] ( ) - See information Below ?? Call your primary care doctor ?? Go to the ER ?? [facility] to [facility] The [facility] call center is here for you seven days a week, 24 hours a day. Our registered nurses are available to answer your questions on almost any health topic. We're prepared to give you expert advice for your medical concerns. We can also provide physician referrals for an [facility] office if there is one in your area. We'll even set up your first appointment! FOLLOW UP: You should follow up with your primary care provider in the time frame instructed, or if your symptoms are not improving. You may not have a primary care provider. If you do not, please call [phone]. LABS/XRAYS: You will only be called with your test results if there is a change in your medication or treatmentplan. You may receive information regarding your labs on your [facility] MyChart. MEDICATIONS: You may have been prescribed medications today. If so, you were given a written prescription OR theprescription was sent electronically to the pharmacy you picked. Your insurance company may not payfor your medicine. This is very hard for us to know in advance. If there are questions about what was prescribed, please have the pharmacist call us. If you are unable to afford the medication that was prescribed, please call the office at [phone]. We may be able to figure out a cheaper option. [facility] DOES NOT AUTHORIZE ANY REFILLS ON PRESCRIPTIONS. YOU WILL NEED TO CALLYOUR PRIMARYCARE DOCTOR IF YOU NEED A REFILL. IF YOU DO NOT HAVE A PRIMARY CARE DOCTOR, WE ENCOURAGE YOU TO FIND ONE. Thank you for choosing [facility]. I hope you start to feel better soon! - Christina CAMPOS, PLATER SUPERVISOR We are currently recommending self-isolation for those with flu-like symptoms. Self-isolation meansyou should do the following: ??? Stay home: People who are mildly ill with COVID-19 are able to recover at home. Do not leave, except to get medical care. Do not visit public areas. ??? Stay in touch with your doctor. Call before you get medical care. Be sure to get care if you feel worse or you think it is an emergency. ??? Avoid public transportation: Avoid using public transportation, ride- sharing, or taxis. If we recommend social isolation, you should continue to follow this recommendation until you are fever free for 24 hours without using antipyretics, your symptoms are improving, and it has been at least 10 days since your symptoms started. COVID-19: What to Do if You Are Sick If you have a fever, cough or other symptoms, you might have COVID-19. Most people have mild illness and are able to recover at home. If you are sick: ?? Keep track of your symptoms. ?? If you have an emergency warning sign (including trouble breathing), call 911. Steps to help prevent the spread of COVID-19 if you are sick If you are sick with COVID-19 or think you might have COVID-19, follow the steps below to care for yourself and to help protect other people in your home and community. Stay home except to get medical care ?? Stay home. Most people with COVID-19 have mild illness and can recover at home without medical care. Do not leave your home, except to get medical care. Do not visit public areas. ?? Take care of yourself. Get rest and stay hydrated. Take vftp-[id number] medicines, such as acetaminophen, to help you feel better. ?? Stay in touch with your doctor. Call before you get medical care. Be sure to get care if you have trouble breathing, or have any other emergency warning signs, or if you think it is an emergency. ?? Avoid public transportation, ride-sharing, or taxis. Separate yourself from other people As much as possible, stay in a specific room and away from other people and pets in your home. If possible, you should use a separate bathroom. If you need to be around other people or animals in or outside of the home, wear a mask. Tell your close contactsthat they may have been exposed to COVID-19. An infected person can spread COVID-19 starting 48 hours (or 2 days) before the person has any symptoms or tests positive. By letting your close contacts know they may have been exposed to COVID-19, you are helping to protect everyone. ?? Additional guidance is available for those living in close quarters and shared housing. ?? See COVID-19 and Animals if you have questions about pets. ?? If you are diagnosed with COVID-19, someone from the health department may call you. Answer the call to slow the spread. Monitor your symptoms ?? Symptoms of COVID-19 include fever, cough, or other symptoms. ?? Follow care instructions from your healthcare provider and local health department. Your local health authorities may give instructions on checking your symptoms and reporting information. When to seek emergency medical attention Look for emergency warning signs* for COVID-19. If someone is showing any of these signs, seek emergency medical care immediately: ?? Trouble breathing ?? Persistent pain or pressure in the chest ?? New confusion ?? Inability to wake or stay awake ?? Pale, brandon, or blue-colored skin, lips, or nail beds, depending on skin tone *This list is not all possible symptoms. Please call your medical provider for any other symptoms that are severe or concerning to you. Call 911 or call ahead to your local emergency facility: Notify the regenerator operator that you are seeking care for someone who has or may have COVID-19. Call ahead before visiting your doctor ?? Call ahead. Many medical visits for routine care are being postponed or done by phone or telemedicine. ?? If you have a medical appointment that cannot be postponed, call your doctor's office, and tell them you have or may have COVID-19. This will help the office protect themselves and other patients. Get tested ?? If you have symptoms of COVID-19, get tested. While waiting for test results, you stay away fromothers, including staying apart from those living in your household. ?? You can visit your [facility], [facility], local, and [facility]'s website to look for the latest local information on testing sites. If you are sick, wear a mask over your nose and mouth ?? You should wear a mask over your nose and mouth if you must be around other people or animals, including pets (even at home). ?? You don't need to wear the mask if you are alone. If you can't put on a mask (because of troublebreathing, for example), cover your coughs and sneezes in some other way. Try to stay at least 6 feet away from other people. This will help protect the people around you. ?? Masks should not be placed on young children under age 2 years, anyone who has trouble breathing, or anyone who is not able to remove the mask without help. Note: During the COVID-19 pandemic, medical grade facemasks are reserved for healthcare workers andsome first responders. Cover your coughs and sneezes ?? Cover your mouth and nose with a tissue when you cough or sneeze. ?? Throw away used tissues in a lined trash can. ?? Immediately wash your hands with soap and water for at least 20 seconds. If soap and water are not available, clean your hands with an alcohol-based hand fixing carpenter that contains at least 60% alcohol. Clean your hands often ?? Wash your hands often with soap and water for at least 20 seconds. This is especially important after blowing your nose, coughing, or sneezing; going to the bathroom; and before eating or preparing food. ?? Use hand fixing carpenter if soap and water are not available. Use an alcohol-based hand fixing carpenter withat least 60% alcohol, covering all surfaces of your hands and rubbing them together until they feeldry. ?? Soap and water are the best option, especially if hands are visibly dirty. ?? Avoid touching your eyes, nose, and mouth with unwashed hands. ?? Handwashing Tips Avoid sharing personal household items ?? Do not share dishes, drinking glasses, cups, eating utensils, towels, or bedding with other people in your home. ?? Wash these items thoroughly after using them with soap and water or put in the tank insulator rubber. Clean all high-touch surfaces everyday ?? Clean and disinfect high-touch surfaces in your sick room and bathroom; wear disposable gloves. Let someone else clean and disinfect surfaces in common areas, but you should clean your bedroom and bathroom, if possible. ?? If a caregiver or other person needs to clean and disinfect a sick person's bedroom or bathroom,they should do so on an as-needed basis. The caregiver/other person should wear a mask and disposable gloves prior to cleaning. They should wait as long as possible after the person who is sick has used the bathroom before coming in to clean and use the bathroom. ? High-touch surfaces include phones, remote controls, counters, tabletops, doorknobs, bathroom fixtures, toilets, keyboards, tablets, and bedside tables. ?? Clean and disinfect areas that may have blood, stool, or body fluids on them. ?? Use household medical radiation dosimetrist and disinfectants. Clean the area or item with soap and water or another detergent if it is dirty. Then, use a household disinfectant. ? Be sure to follow the instructions on the label to ensure safe and effective use of the product. Many products recommend keeping the surface wet for several minutes to ensure germs are killed. Manyalso recommend precautions such as wearing gloves and making sure you have good ventilation during use of the product. ? Use a product from EPA's List N: Disinfectants for Coronavirus (COVID-19). ? Complete Disinfection Guidance When you can be around others after being sick with COVID-19 Deciding when you can be around others is different for different situations. Find out when you cansafely end home isolation. For any additional questions about your care, contact your healthcare provider or state or local health department. 07/08/2020 Content source: National Center for Immunization and Respiratory Diseases (NCIRD), Division of Viral Diseases This information is not intended to replace advice given to you by your health care provider. Make sure you discuss any questions you have with your health care provider. Document Revised: 12/30/2020 Document Reviewed: 12/30/2020 Elsevier Patient Education ?? 2020 [employer] DER STEAM documented in this encounter Progress Notes * Denilson Beanssangel Curry - 04/30/2021 6:00 PM CST Medical Decision Making: Assessment and Plan Vitals: 04/30/21 1712 BP: 131/82 BP Location: Left Arm BP Position: Sitting BP Cuff Size: Regular Pulse: 77 Resp: 20 Temp: 98.4 ??F (36.9 ??C) TempSrc: Oral SpO2: 98% Weight: 200 lb (90.7 kg) Height: 5' 4 (1.626 m) Diagnoses and all orders for this visit: Exposure to COVID-19 virus Cough - SARS-COV-2 BY MOLECULAR Symptoms of upper respiratory infection (URI) Other orders - FLUoxetine (PROzac) 20 MG Capsule; TAKE 1 CAPSULE BY MOUTH ONCE DAILY - Physical exam and patient presenting symptoms most consistent with symptomatic patient with COVID-19 exposure. I informed the patient/guardian of the process of sending patient nasal swab/specimen for confirmatory COVID-19 PCR/Molecular test. Patient/guardian informed that results will be reviewed when available and they will be contacted with results. Explained written instructions that were provided in AVS Patient/Caregiver verbalizes understanding of plan of care/instructions discussed today. FOLLOW UP: Patient was advised to call healthcare provider or get medical care right away if the following occur: ?? Worsening of symptoms ?? Coughing/wheezing ?? Fever of 100.4??F (38??C) or higher, or as directed by your healthcare provider ?? Raised red bumps (hives) ?? Continuing symptoms, new symptoms, or worsening symptoms Patient was advised to call 911 if any of the following occur: ?? Trouble breathing ?? Severe swelling of the face or severe itching of the eyes or mouth ?? Wheezing or shortness of breath ?? Chest tightness ?? Dizziness or lightheadedness ?? Feeling of doom ?? Stomach pain, bloating, vomiting, or diarrhea Patient to follow-up with PCP PRN. Patient to call clinic or seek immediate medical attention if any worsening of present symptoms or new symptoms develop. I have seen and examined the patient on 04/30/2021. Documentation for this visit was completed using a template. Everything documented was personally performed today with the necessary additions, deletions and changes made as appropriate. Return if symptoms worsen or fail to improve. Subjective: Chief Complaint Patient presents with ??? Cough ??? Fatigue ??? Sore Throat Patient presents with complaints of Dylan Ceja is a pleasant 25 y.o. female here today for concerns regarding a cough, fatigue, andsore throat x 1 day. Patient has not taken any medication at home for symptoms. She would like tested for covid-19 because she recently has been exsposed. Patient denies any fever, chills, shortness of breath, wheezing, chest pain, abdominal pain, vomiting, or diarrhea. ROS negative except as documented in HPI and/or assessment and plan Chief complaint and all history documented by ancillary staff were reviewed and verified with additions or corrections as appropriate. Patient allergies, medication list and problem list reviewed. Objective: Physical Exam Vitals and nursing note reviewed. Constitutional: General: She is not in acute distress. Appearance: Normal appearance. She is well-developed and normal weight. She is not ill-appearing ortoxic-appearing. HENT: Right Ear: Ear canal and external ear normal. A middle ear effusion (clear) is present. Tympanic membrane is not erythematous or bulging. Left Ear: Ear canal and external ear normal. A middle ear effusion (clear) is present. Tympanic membrane is not erythematous or bulging. Nose: Congestion and rhinorrhea present. Right Turbinates: Enlarged. Left Turbinates: Enlarged. Mouth/Throat: Mouth: Mucous membranes are moist. Pharynx: Posterior oropharyngeal erythema present. Eyes: General: Lids are normal. Conjunctiva/sclera: Right eye: Right conjunctiva is not injected. No exudate or hemorrhage. Left eye: Left conjunctiva is not injected. No exudate or hemorrhage. Cardiovascular: Rate and Rhythm: Normal rate and regular rhythm. Heart sounds: Normal heart sounds. No murmur heard. Pulmonary: Effort: Pulmonary effort is normal. Breath sounds: Normal breath sounds. Skin: General: Skin is warm. Neurological: Mental Status: She is alert and oriented to person, place, and time. Mental status is at baseline. Motor: No weakness. Gait: Gait normal. DER STEAM * Patito Hdez APRN, CNP - 04/30/2021 6:00 PM CST Please notify patient/parent of non-detected COVID-19 result. Due to their symptoms it is our recommendations that they follow CDC guidelines for quarantine of COVID-19 like illness. If their symptoms are worsening, fail to improve, or they are with new symptoms please have them return to clinic, follow up with PCP, or seek immediate treatment. Thank you DER STEAM documented in this encounter Plan of Treatment Not on file documented as of this encounter Procedures Procedure Name Priority Date/Time Associated Diagnosis Comments SARS-COV-2 BY MOLECULAR Routine 04/30/2021 5:23 PM BOARDER STEAM Cough documented in this encounter Results * SARS-COV-2 BY MOLECULAR (04/30/2021 5:23 PM BOARDER STEAM) SARSCOV2 NOT DETECTED (Referen ce Range for this test is Not Detected ) [facility] THERMOFISHER FAST DX 05/03/2021 12:40 AM BOARDER STEAM [facility] Comment:This test was perfor med by a RT-PCR method. Other NASAL STRUCTURE / Unknown Non-Phlebotomy Collection / Unknown 04/30/2021 5:23 PM BOARDER STEAM 04/30/2021 5:23 PM BOARDER STEAM Narrative [facility] - 05/03/2021 12:40 AM BOARDER STEAM Authorized Fact Sheets about this test for providers and patients are available at: https://www.fda.gov/medical-devices/leigqpxwh-jtuqyzdoot-xxvxbsz-devices/emergen -us e-authorizations Christina Bean APRN, CNP MICROBIOLOGY - GENERA L ORDERABLES Final Result [facility] [address] [place] [address], documented in this encounter Visit Diagnoses Diagnosis Exposure to COVID-19 virus- Primary Cough Symptoms of upper respiratory infection (URI) documented in this encounter Additional Health Concerns Infection Onset Date Last Indicated Resolved Time COVID - 19 04/30/2021 04/30/2021 05/20/2021 12:1 6 AM BOARDER STEAM documented as of this encounter
--- OUTSIDE RECORDS SUMMARY | 2024-05-06 03:51 | XMS_ITS | Encounter Summary ---
Author Organization [facility] Address [address] [place] [address] Care Team Providers Care Senior Tax Analyst Name Role Phone Anika Bob MD Unavailable Anika Bob MD Primary Care Provider [phone] Encounter Details Date Type Department Care Team (Late st Contact Info) Description 10/11/2011 Orders Only [facility] - Pediatrics [address] [place] [phone] Anika Bob MD [address] [place] [address] Social History Tobacco Use Types Packs/Day Years Used Date Smoking Tobacco: Never Assessed Sex and Gender Information Value Date Recorded Sex Assigned at Not on file Gender Identity Not on file Sexual Orientation Not on file documented as of this encounter Progress Notes * Anika Bob MD - 10/11/2011 4:41 PM CDT Sister tested positive for Pertussis ig A, spoke to dad and advised him to ask his and mom's doctorfor prophylaxis. Advised to give Dylan five days of Zithromax. documented in this encounter Plan of Treatment Not on file documented as of this encounter Visit Diagnoses Not on filedocumented in this encounter Care Teams Senior Tax Analyst Relationship Specialty Start Date End Date Anika Bob MD PCP - Pediatrics 03/26/09 10/07/14 Anika Bob MD PCP - General Pediatrics 10/04/11 10/06/14 documented as of this encounter
--- OUTSIDE RECORDS SUMMARY | 2024-05-06 03:51 | XMS_ITS | Encounter Summary ---
Author Organization [facility] Care Team Providers Care Assistant Controller Name Role Phone Provider, None Primary Care Provider Unavailabl e Encounter Details Date Type Department Care Team (Latest Contact Info) Description 07/21/2021 Travel Social History Tobacco Use Types Packs/Day Years Used Date Smoking Tobacco: Never Smokeless Tobacco: Never Comments No Sex and Gender Information Value Date Recorded Sex Assigned at Not on file Legal Sex Female 4:21 PM TALENT ACQUISITION ASSISTANT Gender Identity Not on file Sexual Orientation Not on file COVID-19 Exposure Response Date Recorded In the last 10 days, have yo u been in contact with someone who was confirmed or suspected to have Coronavirus/COVID-19? No / Unsure 07/21/2021 2:28 PM CDT documented as of this encounter Plan of Treatment Not on file documented as of this encounter Visit Diagnoses Not on filedocumented in this encounter Care Teams Assistant Controller Relationship Specialty Start Date End Date Provider, Nicolle NAPIER PCP - General 05/01/21 documented as of this encounter
--- OUTSIDE RECORDS SUMMARY | 2024-05-06 03:51 | XMS_ITS | Encounter Summary ---
Author Organization [facility] Address [address] [place] [address] Care Team Providers Care Web Page Designer Name Role Phone Unavailable Primary Care Provider Unavailabl e Reason for Visit * Reason Onset Date Comments Follow-up 04/26/2016 Encounter Details Date Type Department Care Team (Late st Contact Info) Description 04/26/2016 Telephone [facility] AT [address] [id number] Shelia Cota Follow-up Social History Tobacco Use Types Packs/Day Years Used Date Smoking Tobacco: Never Smokeless Tobacco: Never Alcohol Use Standard Drinks/Week Comments Not Asked 0 (1 standard drink = 0.6 oz pur e alcohol) Sex and Gender Information Value Date Recorded Sex Assigned at Not on file Gender Identity Not on file Sexual Orientation Not on file documented as of this encounter Plan of [...] Where can I go for more information? [employer] [employer] ( ) www.aap.org HealthyChildren.org www.healthychildren.org U.[place] Department of Health and Human Services www.hhs.gov Website and free downloadable nadja for smartphones: http://www.Mola.com/ Use safety retraint in car Lifestyle On track( 017 10:08 AM CDT) No Alondra Wills MD Note: ?? Seat belt laws should apply to all vehicle occupants documented as of this encounter Visit Diagnoses Not on filedocumented in this encounter
--- OUTSIDE RECORDS SUMMARY | 2024-05-06 03:51 | XMS_ITS | Encounter Summary ---
Author Organization [facility] Address [address] [place] [address] Phone Care Team Providers Care Signal Timer Name Role Phone Provider, None Primary Care Provider Unavailabl e Reason for Visit * Reason Comments Laceration Encounter Details Date Type Department Care Team (Late st Contact Info) Description 07/21/2021 2:30 PM CDT Urgent Care Visit [facility] [address] [place] [id number] Maria De Jesus Snider, ROLL GRINDER, SNACK BAR ATTENDANT [address] [place] [address] Avulsion of skin of middle finger, initial encounter (Primary Dx) Discharge Disposition: Discharged to home or Selfcare Social History Tobacco Use Types Packs/Day Years Used Date Smoking Tobacco: Never Smokeless Tobacco: Never Comments No Sex and Gender Information Value Date Recorded Sex Assigned at Not on file 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 No / Unsure 07/21/2021 2:28 PM CDT documented as of this encounter Last Filed Vital Signs Vital Sign Reading Time Taken Comments Blood Pressure 135/84 07/21/2021 2:30 PM CDT Pulse 84 07/21/2021 2:30 PM CDT Temperature - - Respiratory Rate 20 07/21/2021 2:30 PM CDT Oxygen Saturation 97% 07/21/2021 2:30 PM CDT Inhaled Oxygen Concentration - - Weight 93 kg (205 lb) 07/21/2021 2:30 PM CDT Height 162.6 cm (5' 4 ) 07/21/2021 2:30 PM CDT Body Mass Index 35.19 07/21/2021 2:30 PM CDT documented in this encounter Patient Instructions * Patient Instructions* Maria De Jesus Snider APRN, SNACK BAR ATTENDANT - 07/21/2021 2:30 PM CDT Images from the original note were not included. Thank you for allowing me to care for you today, below you will find information and instructions about your illness that I hope you find helpful: The treatment you got today at [facility] was for the care of your urgent problem. The treatment may only be for the relief of symptoms. It is not a final treatment. It did not diagnose all of your diseases or conditions. This visit does not replace the care you get from your primary care doctor. Only a primary care doctor can give ongoing, comprehensive care. ??? If you have new or worsening symptoms go to the Emergency Department. If you are concerned about your symptoms and you feel like it is an emergency, please call [phone]--[phone] or present to the Emergency Department immediately. ??? Follow up with PCP in as verbally instucted. You may have been prescribed medications today. [...] the medication that was prescribed, please call [phone]. We may be able to figure out a cheaper option. [facility] STAFF DOES NOT AUTHORIZE ANY REFILLS ON PRESCRIPTIONS. YOU WILL NEED TO CALLYOUR PRIMARY CARE DOCTOR IF YOU NEED A REFILL. IF YOU DO NOT HAVE A PRIMARY CARE DOCTOR, WE ENCOURAGE YOU TO FIND ONE. Thank you for choosing [facility]. I hope you start to feel better soon! ---TANYA Pretty Skin Tear A skin tear is a wound in which the top layers of skin have peeled off from the deeper skin or tissues underneath. This is a common problem as people get older because the skin becomes thinner and more fragile. In addition, some medicines, such as oral corticosteroids, can lead to thinning skin if they are taken for long periods of time. A skin tear is often repaired with tape or skin adhesive strips. Depending on the location of the wound, a bandage (dressing) may be applied over the tape or adhesive strips. Follow these instructions at home: Wound care ?? Clean the wound as told by your health care provider. You may be instructed to keep the wound dry for the first few days. If you are told to clean the wound: ? Wash the wound as told by your health care provider. This may include using mild soap and water, a wound cleanser, or a salt-water (saline) solution. ? If using soap, rinse the wound with water to remove all soap. ? Do not rub the wound dry. Pat it gently with a clean towel or let it air-dry. ?? Change any dressings as told by your health care provider. This may include changing the dressing if it gets wet, gets dirty, or starts to smell bad. ? Wash your hands with soap and water for at least 20 seconds before and after you change your bandage (dressing). If soap and water are not available, use hand heel splitter. ? Leave tape or skin adhesive strips in place. These skin closures may need to stay in place for 2 weeks or longer. If adhesive strip edges start to loosen and curl up, you may trim the loose edges. Do not remove adhesive strips completely unless your health care provider tells you to do that. ?? Check your wound every day for signs of infection. Check for: ? Redness, swelling, or pain. ? More fluid or blood. ? Warmth. ? Pus or a bad smell. ?? Do not scratch or pick at the wound. ?? Protect the injured area until it has healed. Medicines ?? Take or apply abcz-uve-pfnkavs and prescription medicines only as told by your health care provider. ?? If you were prescribed an antibiotic medicine, take or apply it as told by your health care provider. Do not stop using the antibiotic even if your condition improves. General instructions ?? Keep the dressing dry as told by your health care provider. ?? Do not take baths, swim, use a hot tub, or do anything that puts your wound underwater until your health care provider approves. Ask your health care provider if you may take showers. You may onlybe allowed to take sponge baths. ?? Keep all follow-up visits. This is important. Contact a health care provider if: ?? You have redness, swelling, or pain around your wound. ?? You have more fluid or blood coming from your wound. ?? Your wound, or the area around your wound, feels warm to the touch. ?? You have pus or a bad smell coming from your wound. Get help right away if: ?? You have a red streak that goes away from the skin tear. ?? You have a fever and chills, and your symptoms suddenly get worse. Summary ?? A skin tear is a wound in which the top layers of skin have peeled off from the deeper skin or tissues underneath. ?? A skin tear is often repaired with tape or skin adhesive strips, and a bandage (dressing) may beapplied over the tape or the adhesive strips. ?? Change any dressings as told by your health care provider. ?? Take or apply tboo-rgs-lrwimdy and prescription medicines only as told by your health care provider. ?? Contact a health care provider if you have signs of infection. This information is not intended to replace advice given to you by your health care provider. Make sure you discuss any questions you have with your health care provider. Document Revised: 07/15/2020 Document Reviewed: 07/15/2020 [employer] Patient Education ?? 2020 [employer]. documented in this encounter Progress Notes * Maria De Jesus Snider APRN, CNP - 07/21/2021 2:30 PM CDT Medical Decision Making: Assessment and Plan Diagnoses and all orders for this visit: Avulsion of skin of middle finger, initial encounter - cephALEXin (KEFLEX) 500 MG Capsule; Take 1 Capsule by mouth 4 times daily for 5 days. - ONCALL TIER 1 RX $10 - REPAIR SIMPLE WOUND BODY /SCALP/NECK <2.5CM [24874] ??? The patient looks well in clinic and non-toxic. No red flag findings on examination ??? History and physical is most consistent with avulsion of skin of left middle finger ??? The patient purchased Keflex in clinic via [employer]. ??? Area Cleansed and Steri-Strips placed (see procedure) ??? The patient is up-to-date on her Tdap vaccination. ??? The patient was educated on at home care, along with keeping the area clean and dry and lettingthe steri strip fall off on their own. The patient was instructed to not submerse her left hand into any liquid. ??? Patient encouraged to utilize supportive care (rest, fluids, cool-mist humidifier, Tylenol or Ibuprofen as needed for pain or fever), along with staying hydrated and pushing decaffeinated fluids. ??? The patient was educated on following up with their PCP if symptoms persist or worsen. The patient was educated on red flag signs and symptoms and when to report to the ED. Patient/caregiver informed of medication instructions. Patient demonstrated understanding using teach back method. Side effects and risk/benifits of all medications discussed with patient/caregiver. All questions/concerns addressed and answered. Additional Medication instructions on AVS Signs and symptoms requiring re-evaluation and include follow up care with primary care provider. Discussed signs and symptoms that warrant a higher level of care and/or evaluation in the emergency department. FOLLOW UP: Patient was advised to call [...] ?? Stomach pain, bloating, vomiting, or diarrhea Explained written instructions that were provided in AVS Patient/Caregiver verbalizes understanding of plan of care/instructions discussed today. Subjective: Chief Complaint Patient presents with ??? Laceration Dylan Ceja is a 25 y.o. female who presents to the clinic accompanied by herself with chief complaint of cut on left middle finger that she can not get to quite bleeding around 2:15 PM today. 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 Patient reports her last Tdap vaccination was in 2017. The patient reports mild pain, but states she mainly came because she cannot getthe area to stop bleeding. The patient is eating, drinking, and voiding without difficulties and denies activity change. She denies chills, fever, diaphoresis, body aches, or fatigue. ROS negative except as documented in HPI and/or assessment and plan Chief complaint and all history documented by ancillary staff were reviewed and verified with additions or corrections as appropriate. Patient allergies, medication list and problem list reviewed. Objective: Vitals: 07/21/21 1430 BP: 135/84 Pulse: 84 Resp: 20 SpO2: 97% Weight: 205 lb (93 kg) Height: 5' 4 (1.626 m) Physical Exam Vitals and nursing note reviewed. Constitutional: General: She is awake. She is not in acute distress. Appearance: Normal appearance. She is well-developed. She is not ill-appearing, toxic-appearing or diaphoretic. HENT: Head: Normocephalic and atraumatic. Eyes: Conjunctiva/sclera: Conjunctivae normal. Cardiovascular: Rate and Rhythm: Normal rate and regular rhythm. Pulses: Radial pulses are 2+ on the left side. Heart sounds: Normal heart sounds. No murmur heard. Pulmonary: Effort: Pulmonary effort is normal. Breath sounds: Normal breath sounds. Musculoskeletal: Cervical back: Neck supple. Skin: General: Skin is warm. Capillary Refill: Capillary refill takes less than 2 seconds. Findings: Wound present. No bruising, ecchymosis or erythema. Comments: Approximately 0.5 cm skin avulsion to the patients left anterior medial middle finger. Nosurrounding erythema, warmth, discoloration, or drainage. Neurovascular intact. (see procedure note) Neurological: General: No focal deficit present. Mental Status: She is alert and oriented to person, place, and time. Mental status is at baseline. Psychiatric: Mood and Affect: Mood normal. Behavior: Behavior normal. Behavior is cooperative. Thought Content: Thought content normal. Judgment: Judgment normal. documented in this encounter Procedure Notes * Maria De Jesus Snider APRN, CNP - 07/21/2021 2:30 PM CDTAssociated Order(s): REPAIR SIMPLE WOUND BODY /SCALP/NECK <2.5CM [[id number]] Post-Procedure Diagnose(s): Avulsion of skin of middle finger, initial encounter REPAIR SIMPLE WOUND BODY /SCALP/NECK <2.5CM () Date/Time: 07/21/2021 2:47 PM Performed by: Maria De Jesus Snider APRN, CNP Authorized by: Maria De Jesus Snider APRN, CNP Body area: upper extremity Location details: left long finger Laceration length: 0.5 cm Foreign bodies: no foreign bodies Sedation: Patient sedated: no Preparation: Patient was prepped and draped in the usual sterile fashion. Skin closure: Steri-Strips Approximation: close Approximation difficulty: simple Dressing: gauze roll Patient tolerance: patient tolerated the procedure well with no immediate complications Comments: Patient placed comfortably in procedure room. Verified name, , and allergies. All risks, benefits, and alternatives were discussed with patient. Area cleansed with wound cleanser. Small amount of bloody drainage, skin avulsion is placed in proper placement. Benzoin applied to lateral sides of wound. 2 steri strips applied. Area covered with gauze roll and skin tape. Wound management discussed. Patient tolerated procedure well. documented in this encounter Plan of Treatment Scheduled Orders Name Type Priority Associated Diagnoses Orde r Schedule ONCALL UC TIER 1 RX $10 SD Charge Routine Avulsion of skin of middle finger, initial encounter Ordered: 07/21/2021 documented as of this encounter Procedures Procedure Name Priority Date/Time Associated Diagnosis Comments SUPERF WND BODY <2.5CM Routine 07/21/2021 2:47 PM CDT Avulsion of skin of middle finger, initial encounter documented in this encounter Results * SUPERF WND BODY <2.5CM (07/21/2021 2:47 PM CDT) Narrative Maria De Jesus Snider APRN, CNP - 07/21/2021 2:47 PM CDT Maria De Jesus Snider APRN, CNP ? 07/21/2021 ??3:22 PM REPAIR SIMPLE WOUND BODY /SCALP/NECK <2.5CM ([id number]) Date/Time: 07/21/2021 2:47 PM Performed by: Maria De Jesus Snider APRN, CNP Authorized by: Maria De Jesus Snider APRN, CNP Body area: upper extremity Location details: left long finger Laceration length: 0.5 cm Foreign bodies: no foreign bodies Sedation: Patient sedated: no Preparation: Patient was prepped and draped in the usual sterile fashion. Skin closure: Steri-Strips Approximation: close Approximation difficulty: simple Dressing: gauze roll Patient tolerance: patient tolerated the procedure well with no immediate complications Comments: Patient placed comfortably in procedure room. Verified name, , and allergies. All risks, benefits, and alternatives were discussed with patient. Area cleansed with wound cleanser. Small amount of bloody drainage, skin avulsion is placed in proper placement. Benzoin applied to lateral sides of wound. 2 steri strips applied. Area covered with gauze roll and skin tape. Wound management discussed. Patient tolerated procedure well. Maria De Jesus Snider APRN, CNP PROCEDURE/GABINO R SURGICAL ORDERABLES Final Result documented in this encounter Visit Diagnoses Diagnosis Avulsion of skin of middle finger, initial encounter- Primary documented in this encounter Care Teams Signal Timer Relationship Specialty Start Date End Date Provider, None [place] PCP - General 05/01/21 documented as of this encounter
--- OUTSIDE RECORDS SUMMARY | 2024-05-06 03:51 | XMS_ITS | Encounter Summary ---
Author Organization [facility] Address [address] [place] [address] Care Team Providers Care Cut Off Saw Tender Metal Name Role Phone Unavailable Primary Care Provider Unavailabl e Reason for Visit * Reason Comments Sinusitis Congestion Encounter Details Date Type Department Care Team (Late st Contact Info) Description 04/24/2016 10:00 AM RAG CUTTING MACHINE TENDER Office Visit [facility] AT [address] [phone] Provider, Primo France Acute maxillary sinusitis, recurrence not specified (Primary Dx) Social History Tobacco Use Types [...] Sign Reading Time Taken Comments Blood Pressure 122/60 04/24/2016 10:09 AM RAG CUTTING MACHINE TENDER Pulse 117 04/24/2016 10:09 AM RAG CUTTING MACHINE TENDER Temperature 36.7 ??C (98.1 ??F) 04/24/2016 10:09 AM C Respiratory Rate 16 04/24/2016 10:09 AM RAG CUTTING MACHINE TENDER Oxygen Saturation - - Inhaled Oxygen Concentration - - Weight 72.6 kg (160 lb) 04/24/2016 10:09 AM RAG CUTTING MACHINE TENDER Height 162.6 cm (5' 4 ) 04/24/2016 10:09 AM RAG CUTTING MACHINE TENDER Body Mass Index 27.46 04/24/2016 10:09 AM RAG CUTTING MACHINE TENDER documented in this encounter Patient Instructions * Patient Instructions* Johanne Coates Alisia, TANYA-CRATE ICER - 04/24/2016 10:15 AM RAG CUTTING MACHINE TENDER Use Flonase per package instructions, Saline nasal mist to prevent nasal drying Tylenol or Motrin as needed Claritin or Zyrtec per package instructions Cool Mist humidifier as needed If no improvement in 48-72 hours follow up with PCP or return to clinic Sinusitis WHAT YOU NEED TO KNOW: What is sinusitis? Sinusitis is inflammation or infection of your sinuses. It is most often caused by a virus. Acute sinusitis may last up to 12 weeks. Chronic sinusitis lasts longer than 12 weeks. Recurrent sinusitis is when you have 3 or more episodes of sinusitis in 1 year. What increases my risk for sinusitis? ?? Medical conditions, such as an upper respiratory infection, allergies, asthma, or cystic fibrosis ?? Dental infections or procedures, such as gum infections, tooth decay, tooth removal, root canal,or a tooth implant ?? Abnormal sinus structure, such as nasal growths, swollen tonsils, or a deviated septum ?? A weak immune system, from diseases such as diabetes or HIV ?? Smoking What are the signs and symptoms of sinusitis? ?? Fever ?? Pain, pressure, redness, or swelling around the forehead, cheeks, or eyes ?? Thick yellow or green discharge from your nose ?? Tenderness when you touch your face over your sinuses ?? Dry cough that happens mostly at night or when you lie down ?? Headache and face pain that is worse when you lean forward ?? Teeth pain or pain when you chew How is sinusitis diagnosed? Your healthcare provider will examine you and ask about your symptoms. He will check inside your nose using a nasal speculum. This is a small tool used to open your nostrils. A sample of the mucus from your nose may show what germ is causing your infection. If you have chronic sinusitis, you may need imaging tests. How is sinusitis treated? Your symptoms may go away on their own. You may need any of the following: ?? Acetaminophen decreases pain and fever. It is available without a doctor's order. Ask how much to take and how often to take it. Follow directions. Acetaminophen can cause liver damage if not taken correctly. ?? NSAIDs , such as ibuprofen, help decrease swelling, pain, and fever. This medicine is available with or without a doctor's order. NSAIDs can cause stomach bleeding or kidney problems in certain people. If you take blood thinner medicine, always ask if NSAIDs are safe for you. Always read the medicine label and follow directions. Do not give these medicines to children under 6 months of age without direction from your child's healthcare provider. ?? Nasal steroid sprays may help decrease inflammation in your nose and sinuses. ?? Decongestants help reduce swelling and drain mucus in the nose and sinuses. They may help you breathe easier. ?? Antihistamines help dry mucus in the nose and relieve sneezing. How can I manage my symptoms? ?? Rinse your sinuses. Use a sinus rinse device to rinse your nasal passages with a saline (salt water) solution. This will help thin the mucus in your nose and rinse away pollen and dirt. It will also help reduce swelling so you can breathe normally. Ask your healthcare provider how often to do this. ?? Breathe in steam. Heat a bowl of water until you see steam. Lean over the bowl and make a tent over your head with a large towel. Breathe deeply for about 20 minutes. Be careful not to get too close to the steam or burn yourself. Do this 3 times a day. You can also breathe deeply when you take ahot shower. ?? Sleep with your head elevated. Place an extra pillow under your head before you go to sleep to help your sinuses drain. ?? Drink liquids as directed. Ask your healthcare provider how much liquid to drink each day and which liquids are best for you. Liquids will thin the mucus in your nose and help it drain. Avoid drinks that contain alcohol or caffeine. ?? Do not smoke, and avoid secondhand smoke. Nicotine and other chemicals in cigarettes and cigars can make your symptoms worse. Ask your healthcare provider for information if you currently smoke and need help to quit. E-cigarettes or smokeless tobacco still contain nicotine. Talk to your healthcare provider before you use these products. How can I help prevent the spread of germs that cause sinusitis? Wash your hands often with soap and water. Wash your hands after you use the bathroom, change a child's diaper, or sneeze. Wash your hands before you prepare or eat food. When should I seek immediate care? ?? Your eye and eyelid are red, swollen, and painful. ?? You cannot open your eye. ?? You have vision changes, such as double vision. ?? Your eyeball bulges out or you cannot move your eye. ?? You are more sleepy than normal, or you notice changes in your ability to think, move, or talk. ?? You have a stiff neck, a fever, or a bad headache. ?? You have swelling of your forehead or scalp. When should I contact my healthcare provider? ?? Your symptoms get worse after 5 to 7 days. ?? Your symptoms do not go away after 10 days. ?? You have nausea and vomiting. ?? Your nose is bleeding. ?? You have questions or concerns about your condition or care. CARE AGREEMENT: You have the right to help plan your care. Learn about your health condition and how it may be treated. Discuss treatment options with your caregivers to decide what care you want to receive. You always have the right to refuse treatment. The above information is an art museum aide only. It is not intended as medical advice for individual conditions or treatments. Talk to your doctor, nurse or pharmacist before following any medical regimen to see if it is safe and effective for you. ?? 2016 [employer]guide. Information is for End User's use only and may not be sold, redistributed or otherwise used for commercial purposes. All illustrations and images included in CareNotes?? are the copyrighted property of [employer] or [employer]. CUTTING MACHINE TENDER documented in this encounter Progress Notes * Johanne Coates APRN-CNP - 04/24/2016 10:10 AM CST [facility] Chief Complaint Patient presents with ??? Sinusitis ??? Congestion SUBJECTIVE: General The history is provided by the patient. This is a new problem. The current episode started more than 1 week ago. The problem occurs constantly. The problem has been gradually worsening. The pain is mild. Associated symptoms include headaches. The symptoms are aggravated by coughing. Treatments tried: mucinex, day/nyquil. Past Medical History Diagnosis Date ??? Acute serous otitis media 10/20/08 ??? Acute sinusitis, unspecified 10/20/08 ??? Headache(784.0) 10/20/08 ??? Routine infant or child health check No current outpatient prescriptions on file prior to visit. No current facility-administered medications on file prior to visit. No past surgical history on file. History Social History ??? Marital status: Single Spouse name: N/A ??? Number of children: N/A ??? Years of education: N/A Occupational History ??? Not on file. Social History Main Topics ??? Smoking status: Never Smoker ??? Smokeless tobacco: Never Used ??? Alcohol use: Not on file ??? Drug use: Not on file ??? Sexual activity: Not on file Other Topics Concern ??? Not on file Social History Narrative No family history on file. No current outpatient prescriptions on file. No current facility-administered medications for this visit. No Known Allergies REVIEW OF SYSTEMS: Review of Systems Constitutional: Positive for chills. Negative for fever. Aches HENT: Positive for congestion, ear pain and sore throat. Sinus pressure, ear pressure, swollen gland, post nasal drainage Respiratory: Positive for cough. Negative for sputum production. Gastrointestinal: Negative for diarrhea and nausea. Neurological: Positive for headaches. OBJECTIVE: General appearance: alert, well appearing, and in no distress. BP 122/60 Pulse 117 Temp 98.1 ??F (Oral) Resp 16 Wt 72.6 kg (160 lb) BMI 27.46 kg/m2 Physical Exam Constitutional: She is oriented to person, place, and time and well-developed, well-nourished, and in no distress. HENT: Head: Normocephalic and atraumatic. Erythema posterior pharynx, bilateral erythema swollen turbinates, bilateral air fluid, maxillary and frontal sinus tenderness Neck: Normal range of motion. Neck supple. Cardiovascular: Normal rate and regular rhythm. Pulmonary/Chest: Effort normal and breath sounds normal. Neurological: She is alert and oriented to person, place, and time. Vitals reviewed. ASSESSMENT: No results found for this visit on 04/24/16. No diagnosis found. PLAN: Use Flonase per package instructions, Saline nasal mist to prevent nasal drying Tylenol or Motrin as needed Claritin or Zyrtec per package instructions Cool Mist humidifier as needed If no improvement in 48-72 hours follow up with PCP or return to clinic CUTTING MACHINE TENDER documented in this encounter Miscellaneous Notes * Addendum Note - Johanne Coates APRN-CNP - 04/24/2016 10:42 AM CSTAddended by: JOHANNE COATES on: 04/24/2016 10:42 AM Modules accepted: Orders CUTTING MACHINE TENDER documented in this encounter Plan of Treatment Not on file documented as of this encounter Goals Goal Patient Goal Type Associated Problems Recent Progress Patient-Stated? Author Exercise 3X per week (30 min per time) Exercise Alondra Workman MD Note: Caring for Your Overweight Child [...] Where can I go for more information? [place] [employer] ( ) www.aap.org HealthyChildren.org www.healthychildren.org U.S. Department of Health and Human Services www.hhs.gov Website and free downloadable nadja for smartphones: http://www.CDNetworks/ Use safety retraint in car Lifestyle On track( 017 10:08 AM CDT) No Alondra Wills MD Note: ?? Seat belt laws should apply to all vehicle occupants documented as of this encounter Visit Diagnoses Diagnosis Acute maxillary sinusitis, recurrence not specified- Primary documented in this encounter
--- OUTSIDE RECORDS SUMMARY | 2024-05-06 03:51 | XMS_ITS | Encounter Summary ---
Author Organization [facility] Address [address] [place] [address] Care Team Providers Care Product Examiner Name Role Phone Alondra Wills MD Primary Care Provider [phone] Reason for Visit * Reason Comments School Physical for college Encounter Details Date Type Department Care Team (Late st Contact Info) Description 11/21/2016 10:00 AM CDT Office Visit [facility] - Pediatrics [address] [place] [phone] Alondra Wills MD [address] [place] [phone] Routine general medical examination at a health care facility (Primary Dx); Need for vaccination; BMI 31.0-31.9,adult; Elevated blood pressure reading without diagnosis of hypertension Social History Tobacco Use Types Packs/Day Years [...] Pressure 138/62 11/21/2016 10:05 AM CDT Pulse - - Temperature 36.9 ??C (98.4 ??F) 11/21/2016 10:05 AM C DT Respiratory Rate - - Oxygen Saturation - - Inhaled Oxygen Concentration - - Weight 81.5 kg (179 lb 9.6 oz) 11/21/2016 10:05 AM CDT Height 161.3 cm (5' 3.5 ) 11/21/2016 10:05 AM CD T Body Mass Index 31.32 11/21/2016 10:05 AM CDT documented in this encounter Progress Notes * iMa Duffy RN - 11/21/2016 1:27 PM CDT Per pt's request, pt's immunization record was faxed to [facility] at [phone] at 1156. * Alondra Wills MD - 11/21/2016 10:18 AM CDT Adolescent WCC Reviewed Nurse's Adolescent Note PHX: overweight Medications: none ROS --had UTI earlier in the month. tx'd with macrobid. 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 Home: moving next month Activity/Exercise: poor. She plans to start exercise after school starts and she doesn't have to work. Alcohol: occasional glass of wine at family functions Drugs: no Sex: yes, uses condoms Smoking: vapes daily Ejqhpgrfik-ZLJ-5 score : negative -see screening section Physical Exam: Wt Readings from Last 3 Encounters: 11/21/16 81.5 kg (179 lb 9.6 oz) 04/24/16 72.6 kg (160 lb) (87 %, Z= 1.14)* 10/30/14 71.8 kg (158 lb 3.2 oz) (89 %, Z= 1.21)* * Growth percentiles are based on CDC 2-20 Years data. Ht Readings from Last 3 Encounters: 11/21/16 1.613 m (5' 3.5 ) 04/24/16 1.626 m (5' 4 ) (45 %, Z= -0.12)* 10/08/14 1.626 m (5' 4 ) (46 %, Z= -0.09)* * Growth percentiles are based on [facility] 2-20 Years data. Facility age limit for growth percentiles is 20 years. Facility age limit for growth percentiles is 20 years. BP 138/62 Temp 98.4 ??F (Temporal Artery) Ht 1.613 m (5' 3.5 ) Wt 81.5 kg (179 lb 9.6 oz) BMI 31.32kg/m2 Growth percentile SmartLinks can only be used for patients less than 20 years old. GENERAL: Alert, NAD EYES: PERRLA, EOMI, red [...] child with normal growth and development. 2. Obese, BMI >30 3. Elevated BP reading Plan: Anticipatory guidance discussed included nutrition, exercise,, start yearly ICING AND GLAZE MAKER visits at 22 yrs.. -check screening labs-cbc,bmp,chol, HgbA1C, tsh Vaccines: TDaP BMI> 25: Yes Classification of weight: obese Blood Pressure interpretation: elevated 2. Discussed diet and exercise 3. Did have caffeine this am and hectic morning. Follow up in 1 year. * Mia Duffy RN - 11/21/2016 10:08 AM CDT Nurse Adolescent Screen Parental/Patient Concerns: None. Mom does not want her to get any immunizations that aren't required so no to the Hep A and HPV series. Diet: Milk 2% and 2 times/week, 32 ounces per week. +cheese Vegetables: fair, fruits: good, Dental: regular dental visits? No, only about once per year documented in this encounter Plan of Treatment Scheduled Orders Name Type Priority Associated Diagnoses Orde r Schedule LIPID PROFILE (LIPID PANEL) Lab Routine Routine general medical examination at a health care facility Ordered: 11/21/2016 BASIC METABOLIC PANEL (BMP) Lab Routine Routine general medical examination at a health care facility Ordered: 11/21/2016 HEMOGLOBIN A1C (HgbA1C) Lab Routine Routine general medical examination at a health care facility Ordered: 11/21/2016 TSH REFLEX FREE T4 Lab Routine Routine general medical examination at a health care facility Ordered: 11/21/2016 CBC W AUTO DIFFERENTIAL Lab Routine Routine general medical examination at a health care facility Ordered: 11/21/2016 documented as of this encounter Goals Goal [...] Where can I go for more information? [place] [employer] ( ) www.aap.org HealthyChildren.org www.healthychildren.org U.S. Department of Health and Human Services www.hhs.gov Website and free downloadable nadja for smartphones: http://www.[employer] NanoSystems/ Use safety retraint in car Lifestyle On track( 017 10:08 AM CDT) No Alondra Wills MD Note: ?? Seat belt laws should apply to all vehicle occupants documented as of this encounter Visit Diagnoses Diagnosis Routine general medical examination at a health care facility- Primary Need for vaccination Need for prophylactic vaccination and inoculation against unspecified single disease BMI 31.0-31.9,adult Body Mass Index 31.0-31.9, adult Elevated blood pressure reading without diagnosis of hypertension documented in this encounter Care Teams Product Examiner Relationship Specialty Start Date End Date Alondra Wills MD PCP - General Pediatrics 11/21/16 11/29/18 documented as of this encounter
--- OUTSIDE RECORDS SUMMARY | 2024-05-06 03:51 | XMS_ITS | Encounter Summary ---
Author Organization [facility] Address [address] [place] [address] Care Team Providers Care Cloud Solutions Architect Name Role Phone Anika Bob MD Unavailable Anika Bob MD Primary Care Provider [phone] Reason for Visit * Reason Comments URI runny stuffy nose, c ough, chest congestion, right ear pain, sore throat. x 6 days. Unsure if fever? Encounter Details Date Type Department Care Team (Late st Contact Info) Description 12/17/2013 1:00 PM CDT Office Visit [facility] - Pediatrics [address] [place] [phone] Alondra Wills MD [address] [place] [phone] URI (upper respiratory infection) (Primary Dx); Unspecified otitis media Social History Tobacco Use Types Packs/Day Years Used Date Smoking Tobacco: Never Assessed Sex and Gender Information Value Date Recorded Sex Assigned at Not on file Gender Identity Not on file Sexual Orientation Not on file documented as of this encounter Last Filed Vital Signs Vital Sign Reading Time Taken Comments Blood Pressure - - Pulse - - Temperature 36.8 ??C (98.2 ??F) 12/17/2013 1:07 PM CD T Respiratory Rate - - Oxygen Saturation - - Inhaled Oxygen Concentration - - Weight 78.7 kg (173 lb 6.4 oz) 12/17/2013 1:07 P M CDT Height - - Body Mass Index - - documented in this encounter Progress Notes * Alondra Wills MD - 12/17/2013 1:10 PM CDT Dylan Ceja, 18 y.o., female here with a complaint of upper respiratory infection symptoms. Pthas been ill for 6 days and thinks sx are getting worse. Fever No Runny nose Yes, clear and yellow [place] Yes Cough:Yes, wet +right ear pain +sore throat No headaches Sleep good Appetitiefair Fluids good Medications none. PE: Temp(Src) 98.2 ??F (Temporal Artery) Wt 78.654 kg (173 lb 6.4 oz), Alert, NAD, HEENT: Ears Right: Tympanic membrane: erythematous, dull Left: Normal Nose Discharge clear Throat injected. Tonsils normal Neck supple, nosignif LAD Chest: no increased work of breathing Lungs Clear to auscultation and Normal breath sounds bilaterally Heart normal S1, S2, no murmurs or gallops. Impression: 1. ROM 2. URI Plan: 1. Rx: amox 875 BID x 10 days Supprotive care reviewed. Discussed reasons to call back. Follow up as needed. documented in this encounter Plan of Treatment Not on file documented as of this encounter Visit Diagnoses Diagnosis URI (upper respiratory infection)- Primary Acute upper respiratory infections of unspecified site Unspecified otitis media documented in this encounter Care Teams Cloud Solutions Architect Relationship Specialty Start Date End Date Anika Bob MD PCP - Pediatrics 03/26/09 10/07/14 Anika Bob MD PCP - General Pediatrics 10/04/11 10/06/14 documented as of this encounter
--- OUTSIDE RECORDS SUMMARY | 2024-05-06 03:51 | XMS_ITS | Encounter Summary ---
Author Organization [facility] Address [address] [place] [address] Care Team Providers Care Hair Spring Cutter Name Role Phone Alondra Wills MD Primary Care Provider [phone] Reason for Visit * Reason Onset Date Comments Record Request 11/29/2018 immunization rec ord only Encounter Details Date Type Department Care Team (Late st Contact Info) Description 11/29/2018 Telephone [facility] - Pediatrics [address] 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 * Telephone Encounter - Traci Mojica RN - 11/29/2018 3:32 PM CDT Patient calling. She only needs immunization record for college. documented in this encounter Plan of Treatment [...] Where can I go for more information? [employer] ( ) www.aap.org HealthyChildren.org www.healthychildren.org U.S. Department of Health and Human Services www.hhs.gov Website and free downloadable nadja for smartphones: http://www.Pocket Gems.[employer]/ Use safety retraint in car Lifestyle On track( 017 10:08 AM CDT) Alondra Workman MD Note: ?? Seat belt laws should apply to all vehicle occupants documented as of this encounter Visit Diagnoses Not on filedocumented in this encounter Care Teams Hair Spring Cutter Relationship Specialty Start Date End Date Alondra Wills MD PCP - General Pediatrics 11/21/16 11/29/18 documented as of this encounter
--- OUTSIDE RECORDS SUMMARY | 2024-05-06 03:51 | XMS_ITS | Encounter Summary ---
Author Organization [facility] Address [address] [place] [address] Phone Care Team Providers Care Plant Machinist Name Role Phone Provider, None Primary Care Provider Unavailabl e Reason for Visit * Reason Onset Date Comments Results 05/03/2021 Encounter Details Date Type Department Care Team (Late st Contact Info) Description 05/03/2021 Telephone [facility] [address] [place] [address] Patito Hdez APRN, HOME CARE CONSULTANT [address] [place] [address] Results Social History Tobacco Use Types Packs/Day Years Used Date Smoking Tobacco: Never Assessed Comments Unknown Sex and Gender Information Value Date Recorded Sex Assigned at Not on file Legal Sex Female 4:21 PM HOME CARE RN Gender Identity Not on file Sexual Orientation Not on file COVID-19 Exposure Response Date Recorded In the last month, have you been in contact with someone who was confirmed or suspected to have Coronavirus / COVID-19? No / Unsure 04/30/2021 4:24 PM HOME CARE RN documented as of this encounter Miscellaneous Notes * Telephone Encounter - Lillian Linares - 05/03/2021 9:00 AM CST Called patient with results. No questions or concerns at this time CARE RN * Telephone Encounter - Lillian Linares - 05/03/2021 8:59 AM CST ----- Message from Patito Hdez APRN, HOME CARE CONSULTANT sent at 05/03/2021 7:35 AM HOME CARE RN ----- Please notify patient/parent of non-detected COVID-19 result. Due to their symptoms it is our recommendations that they follow CDC guidelines for quarantine of COVID-19 like illness. If their symptoms are worsening, fail to improve, or they are with new symptoms please have them return to clinic, follow up with PCP, or seek immediate treatment. Thank you CARE RN documented in this encounter Plan of Treatment Not on file documented as of this encounter Visit Diagnoses Not on filedocumented in this encounter Additional Health Concerns Infection Onset Date Last Indicated Resolved Time COVID - 19 04/30/2021 04/30/2021 05/20/2021 12:1 6 AM HOME CARE RN documented as of this encounter Care Teams Plant Machinist Relationship Specialty Start Date End Date Provider, None [place] PCP - General 05/01/21 documented as of this encounter
--- OUTSIDE RECORDS SUMMARY | 2024-05-06 03:51 | XMS_ITS | Patient Health Summary ---
Author Organization [facility] Address [address] [address] Care Team Providers Care Cutter Wet Machine Name Role Phone Unavailable Primary Care Provider Unavailabl e Note from [facility],non-owned Affiliates and Associated Physician Practices is amultiple site organization consisting of ambulatory clinics and hospital sitesin [place], [place], [place] and [place]. This disclosure is being madepursuant to the Care Everywhere program and may not contain all information available regarding this patient. Last updated 18.[facility] Allergies No known active allergies Medications Be aware that medications may not be up to date on this document. Always verify current medications with the patient. No known medications Active Problems Problem Noted Date Diagnosed Date BMI 26.0-26.9,adult 10/08/2014 Immunizations * DPT(Given 11/16/2001, 02/27/1998, 02/20/1997, 1996, 1996) * HEP B VACCINE, PED/ADOL(Given 05/23/1997, 1996, 1996) * HIB BOOSTER(Given 02/27/1998, 02/20/1997, 1996, 1996) * MENINGOCOCCAL CONJUGATE (MCV4P)(Given 10/08/2014) * MMR(Given 11/16/2001, 08/22/1997) * POLIO IPV(Given 11/16/2001) * POLIO OPV(Given 02/20/1997, 1996, 1996) * PPD(Given 11/16/2001, 08/22/1997) * TDAP (7yrs+)(Given 11/21/2016, 11/10/2006) * VARICELLA(Given 11/10/2006, 11/28/1997) Social History Tobacco Use Types Packs/Day Years [...] AM CDT Pulse 117 04/24/2016 10:09 AM STOCK ASSOCIATE Temperature 36.9 ??C (98.4 ??F) 11/21/2016 10:05 AM C DT Respiratory Rate 16 04/24/2016 10:09 AM STOCK ASSOCIATE Oxygen Saturation - - Inhaled Oxygen Concentration - - Weight 81.5 kg (179 lb 9.6 oz) 11/21/2016 10:05 AM CDT Height 161.3 cm (5' 3.5 ) 11/21/2016 10:05 AM CD T Body Mass Index 31.32 11/21/2016 10:05 AM CDT Procedures * GROSS EXAM PATHOLOGY(Performed 11/03/1999) Results * GROSS EXAM PATHOLOGY (11/03/1999 9:45 AM CDT) Result CASE NUMBER [id number] [facility] PATH REPORT Comment: ORDERING PHYSICIAN ??ARIELLA MONTOYA SPECIMEN TYPE ?Tonsils CLINICAL HISTORY ? The patient is a 4-year-old girl with chronic tonsillitis and tonsil and adenoid hypertrophy who underwent tonsillectomy and adenoidectomy. GROSS DESCRIPTION ? A single specimen is received fresh labeled with the patient's name and tonsils and consists of two egg-shaped palatine tonsils measuring 1.9 x 1.4 x 1.0 cm. and 2.0 x 1.5 x 0.9 cm. and having a combined mass of 4 grams. ??The palatine tonsils are similar in appearance. ??Specifically, the mucosa shows numerous crypts. ??The surgical margin shows cautery artifact. ??Serial sectioning shows cerebriform pale martins-pink tissue without focal abnormalities. ??The specimen is submitted for gross examination only. ??(DB/kb) GROSS DIAGNOSIS ? DIAGNOSIS ??TONSILS. RESIDENT IN PATHOLOG Mendel Hopkins M.D. PATHOLOGIST ?Elizabeth Caceres M.D. ELECTRONICALLY KAIA ELIZABETH CACERES MISCELLANEOUS SAMPLES / Unknown 11/03/1999 9:45 AM CDT 11/03/1999 11:02 AM CDT Historical Provider LAB - PATHOLOGY/C YTOLOGY ORDERABLES [facility] PATH REPORT
--- OUTSIDE RECORDS SUMMARY | 2024-05-06 03:51 | XMS_ITS | Encounter Summary ---
Author Organization [facility] Address [address] [place] [address] Care Team Providers Care Automatic Driller And Reamer Name Role Phone Anika Bob MD Unavailable Anika Bob MD Primary Care Provider Encounter Details Date Type Department Care Team (Late st Contact Info) Description 11/03/1999 Orders Only [facility] - [address] [address] ProviderKurtis MD Social History Tobacco Use Types Packs/Day Years Used Date Smoking Tobacco: Never Assessed Sex and Gender Information Value Date Recorded Sex Assigned at Not on file Gender Identity Not on file Sexual Orientation Not on file documented as of this encounter Plan of Treatment Not on file documented as of this encounter Procedures Procedure Name Priority Date/Time Associated Diagnosis Comments GROSS EXAM PATHOLOGY ELOY 11/03/1999 9:45 AM CDT documented in this encounter Results * GROSS EXAM PATHOLOGY (11/03/1999 9:45 AM CDT) Result CASE NUMBER [id number] [facility] PATH REPORT Comment: ORDERING [...] Historical Provider LAB - PATHOLOGY/C YTOLOGY ORDERABLES [facility] PATH REPORT documented in this encounter Visit Diagnoses Not on filedocumented in this encounter Care Teams Automatic Driller And Reamer Relationship Specialty Start Date End Date Anika Bob MD PCP - Pediatrics 03/26/09 10/07/14 Anika Bob MD PCP - General Pediatrics 10/04/11 10/06/14 documented as of this encounter
--- OUTSIDE RECORDS SUMMARY | 2024-05-06 03:51 | XMS_ITS | Continuity of Care Document ---
Author Organization [facility] Address [address] [place] [address] Phone Care Team Providers Care Meeting Manager Name Role Phone Geovani Valerio DO Unavailable Unavailable Advance Directives Directive Yes / No Effective Date File Name No Information Encounters Encounter Description Practice Location Reason(s) For Visit Diagnoses Date Provider Providers Copied on Encounter [facility], [address], [place], [place], [id number], [place] [phone] No Information Iman Streeter. [address] [facility], [place], [address], [place]. tel: [phone] Family History Family Member Type Diagnosis Age At Onset No Information Payers Payer name Insurance type Covered green party ID Authoriza tion(s) No Information Social History Type Description Quantity Date Captured Comments Sex Female Smoking Status No Information Chief Complaint And Reason For Visit No Information Reason For Referral Reason For Referral No Information History Of Present Illness Encounter Date Complaint History Of Prese nt Illness No Information Functional Status Date Functional Assessmen t No Information Instructions Date Instruction Additional Infor mation No Information Assessments Type Assessment Date No Information Patient Care Teams Name Effective Dates (start - stop) Status Members No Information
--- OUTSIDE RECORDS SUMMARY | 2024-05-06 03:51 | XMS_ITS | Encounter Summary ---
Author Organization [facility] Address [address] [place] [address] Care Team Providers Care Dye House Vat Worker Name Role Phone Anika Bob MD Unavailable Reason for Visit * Reason Comments School Physical 9th grade Encounter Details Date Type Department Care Team (Late st Contact Info) Description 11/29/2010 3:50 PM CDT Office Visit [facility] - Pediatrics [address] [place] [phone] Anika Bob MD [address] [place] [address] Routine or child health check (Primary Dx); BMI (body mass index), pediatric, 95-99% for age Social History Tobacco Use Types Packs/Day Years Used Date Smoking Tobacco: Never Assessed Sex and Gender Information Value Date Recorded Sex Assigned at Not on file Gender Identity Not on file Sexual Orientation Not on file documented as of this encounter Last Filed Vital Signs Vital Sign Reading Time Taken Comments Blood Pressure 118/62 11/29/2010 4:00 PM CDT Pulse 61 11/29/2010 4:00 PM CDT Temperature 37.1 ??C (98.8 ??F) 11/29/2010 4:00 PM CD T Respiratory Rate - - Oxygen Saturation - - Inhaled Oxygen Concentration - - Weight 73.1 kg (161 lb 3.2 oz) 11/29/2010 4:00 P M CDT Height 160 cm (5' 3 ) 11/29/2010 4:00 PM CDT Body Mass Index 28.56 11/29/2010 4:00 PM CDT Body Mass Index Percentile 95.73% 11/29/2010 4:0 0 PM CDT Growth Chart: [facility] (Girls, 2- 20 Years) documented in this encounter Patient Instructions * Patient Instructions* Anika Bob MD - 11/29/2010 4:21 PM CDT YOUR GROWING CHILD: ADOLESCENT Child???s Name: Dylan Ceja Today???s Date: 11/29/2010 Wt Readings from Last 3 Encounters: 11/29/10 161 lb 3.2 oz (73.12 kg) (94.90%) 11/09/09 180 lb 3.2 oz (81.738 kg) (98.67%) 10/27/09 179 lb 6.4 oz (81.375 kg) (98.66%) Ht Readings from Last 3 Encounters: 11/29/10 5' 3 (1.6 m) (44.40%) Body mass index is 28.56 kg/(m^2). 96.16% of growth percentile based on BMI-for-age. 94.90% of growth percentile based on ltotlc-pvt-odp. 44.40% of growth percentile based on zxmmlmf-oda-mwo. IMMUNIZATIONS At the time of high school [...] machinery. Plan to ride with a designated vibratory pile driver or to call for a ride [...] and regular physical ac tivity. ORAL HEALTH: [place] your teeth twice a day with a [...] normal, but having sex should be a sznm-hqxyodc-smu decision. Delay having sex until you and [...] those for curfews or driving. Share in hooker on. Learn about how you can take on [...] PROMOTION OF COMMUNITY INTERACTION: Participate in social, jainism, cultural, volunteer or recreational activities. Advocate for [...] a TV or computer in your room. www.Bitbrains: A great site for older teens that includes ways to communicate with peers when they experience online bullying that is not cool . www.wiredkids.org: A site for younger and older teens, as well as parents, with many suggestions oninternet safety www.Amorelietz.org: A site presented by the National Center for Missing and Exploited Children with information for kids, teens and parents, much of it focused on avoiding cyber bullying. documented in this encounter Progress Notes * Anika Bob MD - 11/29/2010 4:03 PM CDT SUBJECTIVE: Dylan Ceja is a 15 y.o. female presenting for well adolescent and/or school/sports physical. She is seen today accompanied by father. PARENTAL CONCERNS: none TEENAGE DEPRESSION SCREEN PHQ- 9: normal DIET: Milk: no - about a glass a week Good variety of fruits and vegatables: yes ANTICIPATORY GUIDANCE: Helment: no Seat belt: yes Dental hygene: yes ROS: no wheezing, cough or dyspnea, no chest pain, regular menstrual cycles, complains of acne on face. No problems during sports participation in the past. Social History: Denies the use of tobacco, alcohol or street drugs. Sexual history: not sexually active FH: Early Heart Disease No Sudden No Diabetes No OBJECTIVE: General appearance: WDWN female. ENT: ears and throat normal Eyes: extra occular movements intact,PERRTL Neck: supple, thyroid normal, no adenopathy Lungs: clear, no wheezing or rales Heart: no murmur, regular rate and rhythm, normal S1 and S2 Abdomen: no masses palpated, no organomegaly or tenderness Genitalia: normal female external genitalia, pelvic not performed Spine: normal, no scoliosis Skin: Normal with no acne noted. Neuro: normal Extremities: normal ASSESSMENT: Well Adolescent BMI > 95 centile PLAN: Plan per records. Immunnizations per electronic medical record. Discussed weight management: yes Acne treatment discussed: no Begin counseling related to alcohol, drugs, tobacco, inhalants, sex; ensure seat belt use; anticipate some errors in judgment and increased risk-taking; prepare child for sexual development, menstruation, wet dreams; teach how to say no to peer pressure; encourage mentally and physically rewarding pursuit of talents and hobbies; promote interaction with friends, team sports; reinforce limits and be firm with consequences; foster conversation and open communication; participate in activities together; contribute to self-esteem with affection and praise; handle anger constructively and do not allow violence. Follow in one year. documented in this encounter Plan of Treatment Not on file documented as of this encounter Visit Diagnoses Diagnosis Routine or child health check- Primary BMI (body mass index), pediatric, 95-99% for age Body Mass Index, pediatric, greater than or equal to 95th percentile for age documented in this encounter Care Teams Dye House Vat Worker Relationship Specialty Start Date End Date Anika Bob MD PCP - Pediatrics 03/26/09 10/07/14 documented as of this encounter
--- OUTSIDE RECORDS SUMMARY | 2024-05-06 03:51 | XMS_ITS | Encounter Summary ---
Author Organization [facility] Care Team Providers Care Electric Bath Attendant Name Role Phone Unavailable Primary Care Provider Unavailabl e Encounter Details Date Type Department Care Team (Latest Contact Info) Description 04/30/2021 Travel Social History Tobacco Use Types Packs/Day Years Used Date Smoking Tobacco: Never Assessed Comments Unknown Sex and Gender Information Value Date Recorded Sex Assigned at Not on file Legal Sex Female 4:21 PM BAR TACKER SEWING MACHINE Gender Identity Not on file Sexual Orientation Not on file COVID-19 Exposure Response Date Recorded In the last month, have you been in contact with someone who was confirmed or suspected to have Coronavirus / COVID-19? No / Unsure 04/30/2021 4:24 PM BAR TACKER SEWING MACHINE documented as of this encounter Plan of Treatment Not on file documented as of this encounter Visit Diagnoses Not on filedocumented in this encounter Additional Health Concerns Infection Onset Date Last Indicated Resolved Time COVID - 19 04/30/2021 04/30/2021 05/20/2021 12:1 6 AM BAR TACKER SEWING MACHINE documented as of this encounter
--- OUTSIDE RECORDS SUMMARY | 2024-05-06 03:51 | XMS_ITS | Encounter Summary ---
Author Organization [facility] Address [address] [place] [address] Care Team Providers Care Insurance Sales Manager Name Role Phone Unavailable Primary Care Provider Unavailabl e Reason for Visit * Reason Comments Pain Ear left ear Congestion stuffy nose Headache X 5 days Sore Throat X 5 days Encounter Details Date Type Department Care Team (Late st Contact Info) Description 10/30/2014 3:45 PM CDT Office Visit [facility] - Pediatrics [address] [place] [address] [place] [phone] Ruth Sutherland, EMERGENCY DEPARTMENT-BODY MECHANIC [address] [facility] [address] [place] [address] Acute mucoid otitis media of left ear (Primary Dx); Viral URI Social History Tobacco Use Types Packs/Day Years [...] Pressure - - Pulse - - Temperature 37 ??C (98.6 ??F) 10/30/2014 3:45 PM CDT Respiratory Rate - - Oxygen Saturation - - Inhaled Oxygen Concentration - - Weight 71.8 kg (158 lb 3.2 oz) 10/30/2014 3:45 P M CDT Height - - Body Mass Index 27.15 10/08/2014 9:37 AM CDT Body Mass Index Percentile 89.54% 10/30/2014 3:4 5 PM CDT Growth Chart: [facility] (Girls, 2- 20 Years) documented in this encounter Progress Notes * Ruth Sutherland, EMERGENCY DEPARTMENT-BODY MECHANIC - 10/30/2014 3:50 PM CDT Sick Visit Name: Dylan Ceja Age: 19 y.o. Accompanied By: self CC: Chief Complaint Patient presents with ??? Pain Ear left ear ??? Congestion stuffy nose ??? Headache X 5 days ??? Sore Throat X 5 days HPI: Dylan is an 19 yr old female who is here for evaluation of left ear pain x 1 day. Associated sxs include: Congestion and CROOKS x 5 days, sore throat. No fevers. No vomiting, diarrhea, or rashes. Current Medications: No current outpatient prescriptions on file. No current facility-administered medications for this visit. Allergies: No Known Allergies PE: Temp(Src) 98.6 ??F (Temporal) Wt 71.759 kg (158 lb 3.2 oz) General alert, cooperative, no distress Skin Skin color, texture, turgor normal. No rashes or lesions Head NCAT w/o lesions or tenderness Eyes/Ears sclera and conjunctiva clear Purulent fluid noted behind left ear; serous fluid behind right ear Nose/ Throat nose:clear rhinorrhea, mucosal erythema and mucosal edema and congestion, throat: mild erythema Teeth and gums normal Neck supple, non-tender, with full ROM, and no lymphadenopathy Nodes no lymphadenopathy in cervical and supraclavicular chains Heart regular rate and rhythm, S1, S2 normal, no murmur, click, rub or gallop Lungs clear to auscultation bilaterally Abdomen soft, non-tender, non distended, normal BS, no HSM Extremities no cyanosis, edema Impression / Plan: 1. AOM. zithromax 500 mg po today, then 250 mg po once daily x 4 days. Med and possible side effects discussed. Call if sxs persist or get worse. 2. Acute URI. Most likely viral. Continue supportive care (saline drops, humidifier). Tylenol or ibuprofen dosed to weight PRN. Call if symptoms persist or worsen. documented in this encounter Plan of Treatment [...] Where can I go for more information? [place] [employer] ( ) www.aap.org HealthyChildren.org www.healthychildren.org U.S. Department of Health and Human Services www.hhs.gov Website and free downloadable nadja for smartphones: http://www.Loop App/ Use safety retraint in car Lifestyle On track( 017 10:08 AM CDT) No Alondra Wills MD Note: ?? Seat belt laws should apply to all vehicle occupants documented as of this encounter Visit Diagnoses Diagnosis Acute mucoid otitis media of left ear- Primary Viral URI Acute upper respiratory infections of unspecified site documented in this encounter
--- OUTSIDE RECORDS SUMMARY | 2024-05-06 03:51 | XMS_ITS | Encounter Summary ---
Author Organization [facility] Address [address] [place] [address] Phone Care Team Providers Care Electronics Engineering Manager Name Role Phone Provider, None Primary Care Provider Unavailabl e Encounter Details Date Type Department Care Team (Late st Contact Info) Description 07/23/2021 Telephone [facility] [address] [place] [address] Maria De Jesus Snider, CUTTER GAS, TANK TRUCK LOADER [address] [place] [address] Social History Tobacco Use Types Packs/Day Years Used Date Smoking Tobacco: Never Smokeless Tobacco: Never Comments No Sex and Gender Information Value Date Recorded Sex Assigned at Not on file Legal Sex Female 4:21 PM MAIL FORWARDING SYSTEM MARKUP CLERK Gender Identity Not on file Sexual Orientation Not on file COVID-19 Exposure Response Date Recorded In the last 10 days, have yo u been in contact with someone who was confirmed or suspected to have Coronavirus/COVID-19? No / Unsure 07/21/2021 2:28 PM CDT documented as of this encounter Miscellaneous Notes * Telephone Encounter - Kathi Church - 07/23/2021 10:01 AM CDT Contacted patient for 48 hour callback. documented in this encounter Plan of Treatment Not on file documented as of this encounter Visit Diagnoses Not on filedocumented in this encounter Care Teams Electronics Engineering Manager Relationship Specialty Start Date End Date Provider, None [place] PCP - General 05/01/21 documented as of this encounter
--- OUTSIDE RECORDS SUMMARY | 2024-05-06 06:35 | XMS_ITS | Patient Health Summary ---
Author Organization [facility] Address [address] [facility] [place] [address] Care Team Providers Care Sweatband Separator Name Role Phone Unavailable Primary Care Provider Unavailabl e Note from [facility],non-owned Affiliates and Associated Physician Practices is amultiple site organization consisting of ambulatory clinics and hospital sitesin [place], [place], [place] and [place]. This disclosure is being madepursuant to the Care Everywhere program and may not contain all information available regarding this patient. Last updated 18.[facility] Allergies No known active allergies Medications [...] AM CDT Pulse 117 04/24/2016 10:09 AM SOFTWARE DEVELOPMENT LEADER Temperature 36.9 ??C (98.4 ??F) 11/21/2016 10:05 AM C DT Respiratory Rate 16 04/24/2016 10:09 AM SOFTWARE DEVELOPMENT LEADER Oxygen Saturation - - Inhaled Oxygen Concentration - - Weight 81.5 kg (179 lb 9.6 oz) 11/21/2016 10:05 AM CDT Height 161.3 cm (5' 3.5 ) 11/21/2016 10:05 AM CD T Body Mass Index 31.32 11/21/2016 10:05 AM CDT Procedures * GROSS EXAM PATHOLOGY(Performed 11/03/1999) Results * GROSS EXAM PATHOLOGY (11/03/1999 9:45 AM CDT) Result CASE NUMBER [id number] [facility] PATH REPORT Comment: ORDERING PHYSICIAN ??ARIELLA [...] Historical Provider LAB - PATHOLOGY/C YTOLOGY ORDERABLES [facility] PATH REPORT
--- OUTSIDE RECORDS SUMMARY | 2024-05-06 06:35 | XMS_ITS | Encounter Summary ---
Author Organization [facility] Address [address] [place] [address] Care Team Providers Care Cheesemaker Name Role Phone Alondra Wills MD Primary Care Provider [phone] Reason for Visit * Reason Onset Date Comments Record Request 11/29/2018 immunization rec ord only Encounter Details Date Type Department Care Team (Late st Contact Info) Description 11/29/2018 Telephone [facility] - Pediatrics [address] [place] [address] Alondra Wills MD [address] [phone] Record Request (immunization record only) [...] to let her know that she may vegetable picker her shot record and also she is [...] Where can I go for more information? [employer] ( ) www.aap.org HealthyChildren.org www.healthychildren.org U.S. Department of Health and Human Services www.hhs.gov Website and free downloadable nadja for smartphones: http://www.BioRestorative Therapies.Deep Driver/ Use safety retraint in car Lifestyle On track( 017 10:08 AM CDT) Alondra Workman MD Note: ?? Seat belt laws should apply to all vehicle occupants documented as of this encounter Visit Diagnoses Not on filedocumented in this encounter Care Teams Cheesemaker Relationship Specialty Start Date End Date Alondra Wills MD PCP - General Pediatrics 11/21/16 11/29/18 documented as of this encounter
--- OUTSIDE RECORDS SUMMARY | 2024-05-06 06:35 | XMS_ITS | Encounter Summary ---
Author Organization [facility] Address [address] [facility] [place] [address] Care Team Providers Care Cement Mason Name Role Phone Alondra Wills MD Primary Care Provider [phone] Reason for Visit * Reason Onset Date Comments Record Request 11/24/2016 Encounter Details Date Type Department Care Team (Late st Contact Info) Description 11/24/2016 Telephone [facility] Medical [facility] - Pediatrics [address] [place] [phone] Alondra Wills MD [address] [place] [phone] Record Request Social History Tobacco Use [...] for immunization record to be faxed to [facility] at [phone]. No Attn: needed. Thanks documented in this [...] Where can I go for more information? [place] [employer] ( ) www.aap.org HealthyChildren.org www.healthychildren.org U.S. Department of Health and Human Services www.hhs.gov Website and free downloadable nadja for smartphones: http://www.Cavium.EntrenaYa/ Use safety retraint in car Lifestyle On track( 017 10:08 AM CDT) No Alondra Wills MD Note: ?? Seat belt laws should apply to all vehicle occupants documented as of this encounter Visit Diagnoses Not on filedocumented in this encounter Care Teams Cement Mason Relationship Specialty Start Date End Date Alondra Wills MD PCP - General Pediatrics 11/21/16 11/29/18 documented as of this encounter
--- OUTSIDE RECORDS SUMMARY | 2024-05-06 06:35 | XMS_ITS | Encounter Summary ---
Author Organization [facility] Address [address] [place] [address] Care Team Providers Care Riddler Operator Name Role Phone Unavailable Primary Care Provider Unavailabl e Reason for Visit * Reason Comments Pain Ear left ear Congestion stuffy nose Headache X 5 days Sore Throat X 5 days Encounter Details Date Type Department Care Team (Late st Contact Info) Description 10/30/2014 3:45 PM CDT Office Visit [facility] - Pediatrics [address] [place] [address] [place] [phone] Ruth Sutherland, WEB CONTENT WRITER-MAORI LIAISON ADVISER [address] [facility] [address] [place] [phone] Acute mucoid otitis media of left [...] 10/30/2014 3:4 5 PM CDT Growth Chart: [facility] (Girls, 2- 20 Years) documented in this encounter Progress Notes * Ruth Sutherland, WEB CONTENT WRITER-MAORI LIAISON ADVISER - 10/30/2014 3:50 PM CDT Sick Visit [...] Where can I go for more information? [place] Academy of Pediatrics ( ) www.aap.org HealthyChildren.org www.healthychildren.org U.S. Department of Health and Human Services www.hhs.gov Website and free downloadable nadja for smartphones: http://www.GoodLux Technology/ Use safety retraint in car Lifestyle [...]
--- OUTSIDE RECORDS SUMMARY | 2024-05-06 06:35 | XMS_ITS | Encounter Summary ---
Author Organization [facility] Address [address] [place] [address] Care Team Providers Care Neuropsychology Director Name Role Phone Anika Bob MD Unavailable Anika Bob MD Primary Care Provider [phone] Reason for Visit * Reason Comments URI runny stuffy nose, c ough, chest congestion, right ear pain, sore throat. x 6 days. Unsure if fever? Encounter Details Date Type Department Care Team (Late st Contact Info) Description 12/17/2013 1:00 PM CDT Office Visit [facility] - Pediatrics [address] [place] [phone] Alondra Wills MD [address] [place] [phone] URI (upper respiratory infection) (Primary Dx); [...] media documented in this encounter Care Teams Neuropsychology Director Relationship Specialty Start Date End Date Anika Bob MD PCP - Pediatrics 03/26/09 10/07/14 Anika Bob MD PCP - General Pediatrics 10/04/11 10/06/14 documented as of this encounter
--- OUTSIDE RECORDS SUMMARY | 2024-05-06 06:35 | XMS_ITS | Encounter Summary ---
Author Organization [facility] Address [address] [place] [address] Care Team Providers Care Weather Forcaster Name Role Phone Anika Bob MD Unavailable Reason for Visit * Reason Comments School Physical 9th grade Encounter Details Date Type Department Care Team (Late st Contact Info) Description 11/29/2010 3:50 PM CDT Office Visit [facility] - Pediatrics [address] [place] [phone] Anika Bob MD [address] [place] [address] Routine or child health check [...] 11/29/2010 4:0 0 PM CDT Growth Chart: [facility] (Girls, 2- 20 Years) documented in this [...] BMI-for-age. 94.90% of growth percentile based on kstwse-waw-qjm. 44.40% of growth percentile based on nukaknu-cqd-bzz. IMMUNIZATIONS At the time of high school [...] machinery. Plan to ride with a designated contract driver or to call for a ride [...] and regular physical ac tivity. ORAL HEALTH: [place] your teeth twice a day with a [...] normal, but having sex should be a qbef-glipuak-ciq decision. Delay having sex until you and [...] those for curfews or driving. Share in household worker. Learn about how you can take on [...] PROMOTION OF COMMUNITY INTERACTION: Participate in social, tenriism, cultural, volunteer or recreational activities. Advocate for [...] a TV or computer in your room. www.Paxata: A great site for older teens that includes ways to communicate with peers when they experience online bullying that is not cool . www.wiredkids.org: A site for younger and older teens, as well as parents, with many suggestions oninternet safety www.GradeBeamtz.org: A site presented by the National Center [...] age documented in this encounter Care Teams Weather Forcaster Relationship Specialty Start Date End Date Anika Bob MD PCP - Pediatrics 03/26/09 10/07/14 documented as of this encounter
--- OUTSIDE RECORDS SUMMARY | 2024-05-06 06:35 | XMS_ITS | Encounter Summary ---
Author Organization [facility] Address [address] [place] [address] Care Team Providers Care Carbide Powder Processor Name Role Phone Unavailable Primary Care Provider Unavailabl e Reason for Visit * Reason Comments Complete Physical Exam college physical Encounter Details Date Type Department Care Team (Late st Contact Info) Description 10/08/2014 9:30 AM CDT Office Visit [facility] - Pediatrics [address] [place] [phone] Alondra Wills MD [address] [place] [phone] Routine general medical examination at a [...] 87%ile (Z=1.14) based on CDC 2-20 Years mvllxo-iss-opc data using vitals from 10/08/2014. 47%ile (Z=-0.08) based on CDC 2-20 Years htsulwq-jcu-kqx data using vitals from 10/08/2014. IMMUNIZATIONS At [...] machinery. Plan to ride with a designated van driver helper or to call for a ride if [...] and regular physical ac tivity. ORAL HEALTH: [place] your teeth twice a day with a [...] normal, but having sex should be a uklm-xriukox-wpd decision. Delay having sex until you and [...] those for curfews or driving. Share in apprentice technician. Learn about how you can take on [...] PROMOTION OF COMMUNITY INTERACTION: Participate in social, scientologist, cultural, volunteer or recreational activities. Advocate for [...] a TV or computer in your room. www.Global Service Bureau: A great site for older teens that includes ways to communicate with peers when they experience online bullying that is not cool . www.[employer].org: A site for younger and older teens, as well as parents, with many suggestions oninternet safety www.ClickDiagnostics.Avito.ru: A site presented by the [facility] for Missing and Exploited Children with information [...] days Social History: School: going to attend [employer]. Home: will be moving to [place], [place] in November, excited about starting college Activity/Exercise: good Alcohol: denies Drugs:denies Sex:denies Smoking:denies Qbmzlryjwh-ZXD-6 score : see screening section Physical Exam: [...] 87%ile (Z=1.14) based on CDC 2-20 Years pnsloz-nau-jht data using vitals from 10/08/2014. 47%ile (Z=-0.08) based on CDC 2-20 Years oujwsvr-oxt-tvs data using vitals from 10/08/2014. BP 128/68 [...] Where can I go for more information? [place] Academy of Pediatrics ( ) www.aap.org HealthyChildren.org www.healthychildren.org U.S. Department of Health and Human Services www.hhs.gov Website and free downloadable nadja for smartphones: http://www.Collax/ Use safety retraint in car Lifestyle On [...]
--- OUTSIDE RECORDS SUMMARY | 2024-05-06 06:35 | XMS_ITS | Encounter Summary ---
Author Organization [facility] Address [address] [place] [address] Care Team Providers Care Optical Store Manager Name Role Phone Alondra Wills MD Primary Care Provider Reason for Visit * Reason Comments School Physical for college Encounter Details Date Type Department Care Team (Late st Contact Info) Description 11/21/2016 10:00 AM CDT Office Visit [facility] - Pediatrics [address] [place] [phone] Alondra Wills MD [address] [place] [phone] Routine general medical examination at a [...] documented in this encounter Progress Notes * Mia Duffy RN - 11/21/2016 1:27 PM CDT Per pt's request, pt's immunization record was faxed to [facility] at [phone] at 1156. * Alondra Wills MD - 11/21/2016 10:18 AM CDT Adolescent WCC Reviewed Nurse's Adolescent Note PHX: overweight Medications: none ROS --had UTI earlier in the month. tx'd with macrobid. 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 Home: moving next month Activity/Exercise: poor. She plans to start exercise after school starts and she doesn't have to work. Alcohol: occasional glass of wine at family functions Drugs: no Sex: yes, uses condoms Smoking: vapes daily Oenuqoundq-GYY-9 score : negative -see screening section Physical [...] -0.09)* * Growth percentiles are based on [facility] 2-20 Years data. Facility age limit for [...] guidance discussed included nutrition, exercise,, start yearly ROAD FREIGHT BRAKE COUPLER visits at 22 yrs.. -check screening labs-cbc,bmp,chol, [...] Where can I go for more information? [place] Academy of Pediatrics ( ) www.aap.org HealthyChildren.org www.healthychildren.org U.S. Department of Health and Human Services www.hhs.gov Website and free downloadable nadja for smartphones: http://www.PVPower/ Use safety retraint in car Lifestyle On [...] hypertension documented in this encounter Care Teams Optical Store Manager Relationship Specialty Start Date End Date Alondra Wills MD PCP - General Pediatrics 11/21/16 11/29/18 documented as of this encounter
--- OUTSIDE RECORDS SUMMARY | 2024-05-06 06:35 | XMS_ITS | Encounter Summary ---
Author Organization [facility] Address [address] [place] [address] Care Team Providers Care Magnet Placer Name Role Phone Anika Bob MD Unavailable Anika Bob MD Primary Care Provider [phone] Encounter Details Date Type Department Care Team (Late st Contact Info) Description 10/11/2011 Orders Only [facility] - Pediatrics [address] [place] [phone] Anika Bob MD [address] [place] [address] Social History Tobacco Use Types [...] on filedocumented in this encounter Care Teams Magnet Placer Relationship Specialty Start Date End Date Anika Bob MD PCP - Pediatrics 03/26/09 10/07/14 Anika Bob MD PCP - General Pediatrics 10/04/11 10/06/14 documented as of this encounter
--- OUTSIDE RECORDS SUMMARY | 2024-05-06 06:35 | XMS_ITS | Encounter Summary ---
Author Organization [facility] Address [address] [facility] [place] [address] Care Team Providers Care Multiple Cut Off Saw Operator Name Role Phone Unavailable Primary Care Provider Unavailabl e Reason for Visit * Reason Comments Sinusitis Congestion Encounter Details Date Type Department Care Team (Late st Contact Info) Description 04/24/2016 10:00 AM AUTOMATION AND CONTROLS INSTRUCTOR Office Visit [facility] [address] [phone] Provider, Primo France Acute maxillary [...] Comments Blood Pressure 122/60 04/24/2016 10:09 AM AUTOMATION AND CONTROLS INSTRUCTOR Pulse 117 04/24/2016 10:09 AM AUTOMATION AND CONTROLS INSTRUCTOR Temperature 36.7 ??C (98.1 ??F) 04/24/2016 10:09 AM C Respiratory Rate 16 04/24/2016 10:09 AM AUTOMATION AND CONTROLS INSTRUCTOR Oxygen Saturation - - Inhaled Oxygen Concentration - - Weight 72.6 kg (160 lb) 04/24/2016 10:09 AM AUTOMATION AND CONTROLS INSTRUCTOR Height 162.6 cm (5' 4 ) 04/24/2016 10:09 AM AUTOMATION AND CONTROLS INSTRUCTOR Body Mass Index 27.46 04/24/2016 10:09 AM AUTOMATION AND CONTROLS INSTRUCTOR documented in this encounter Patient Instructions * Patient Instructions* Johanne Coates Alisia, TANYA-INSPECTOR MECHANICAL - 04/24/2016 10:15 AM AUTOMATION AND CONTROLS INSTRUCTOR Use Flonase per package instructions, Saline nasal [...] refuse treatment. The above information is an rest room maid only. It is not intended as medical advice for individual conditions or treatments. Talk to your doctor, nurse or pharmacist before following any medical regimen to see if it is safe and effective for you. ?? 2016 Anatexis. Information is for End User's use only and may not be sold, redistributed or otherwise used for commercial purposes. All illustrations and images included in CareNotes?? are the copyrighted property of ABigEvidenceD.A.Navigating Cancer., Inc. or InnoVital Systems. MATION AND CONTROLS INSTRUCTOR documented in this encounter Progress Notes * [...] up with PCP or return to clinic MATION AND CONTROLS INSTRUCTOR documented in this encounter Miscellaneous Notes * Addendum Note - Johanne Coates APRN-CNP - 04/24/2016 10:42 AM CSTAddended by: JOHANNE COATES on: 04/24/2016 10:42 AM Modules accepted: Orders MATION AND CONTROLS INSTRUCTOR documented in this encounter Plan of Treatment [...] Where can I go for more information? [place] Academy of Pediatrics ( ) www.aap.org HealthyChildren.org www.healthychildren.org U.S. Department of Health and Human Services www.hhs.gov Website and free downloadable nadja for smartphones: http://www.Vantageous/ Use safety retraint in car Lifestyle On track( 017 10:08 AM CDT) No Alondra Wills MD Note: ?? Seat belt laws should apply to all vehicle occupants documented as of this encounter Visit Diagnoses Diagnosis Acute maxillary sinusitis, recurrence not specified- Primary documented in this encounter
--- OUTSIDE RECORDS SUMMARY | 2024-05-06 06:35 | XMS_ITS | Encounter Summary ---
Author Organization [facility] Address [facility] [place] [address] Care Team Providers Care Machines Technician Name Role Phone Anika Bob MD Unavailable Reason for Visit * Reason Comments Pain right middle finger up to wrist x4 days Encounter Details Date Type Department Care Team (Late st Contact Info) Description 10/27/2009 3:40 PM CDT Office Visit [facility] Medical [facility] - Pediatrics [address] [place] [phone] Anika Bob MD [address] [place] [address] Wrist Pain (Primary Dx) Social [...] forearm documented in this encounter Care Teams Machines Technician Relationship Specialty Start Date End Date Anika Bob MD PCP - Pediatrics 03/26/09 10/07/14 documented as of this encounter
--- OUTSIDE RECORDS SUMMARY | 2024-05-06 06:35 | XMS_ITS | Encounter Summary ---
Author Organization [facility] Address [address] [place] [address] Care Team Providers Care Hand Mounter Name Role Phone Anika Bob MD Unavailable Reason for Referral * Evaluate & Treat Specialty Diagnoses / Procedures Referred By Contac t Referred To Contact Anika Bob MD [address] [place] [address] Joselito Sullivan MD [address] [place] [address] [place] [address] Referral ID Status Reason Start Date Expiration Date V isits Requested Visits Authorized Specialty Services Required Reason for Visit * Reason Comments Pain Wrist right Encounter Details Date Type Department Care Team (Late st Contact Info) Description 11/09/2009 4:10 PM CDT Office Visit [facility] - Pediatrics [address] [place] [phone] Anika Bob MD [address] [place] [address] Wrist Pain (Primary Dx) Social History [...] She was seen [facility] and xrays were normal. She has been [...] forearm documented in this encounter Care Teams Hand Mounter Relationship Specialty Start Date End Date Anika Bob MD PCP - Pediatrics 03/26/09 10/07/14 documented as of this encounter
--- OUTSIDE RECORDS SUMMARY | 2024-05-06 06:35 | XMS_ITS | Encounter Summary ---
Author Organization [facility] Address [address] [place] [address] Care Team Providers Care Asphalt Smoother Name Role Phone Unavailable Primary Care Provider Unavailabl e Reason for Visit * Reason Onset Date Comments Follow-up 04/26/2016 Encounter Details Date Type Department Care Team (Late st Contact Info) Description 04/26/2016 Telephone [facility] AT [address] [phone] Shelia Cota Follow-up Social History [...] Where can I go for more information? [place] Citizen Academy of Pediatrics ( ) www.aap.org HealthyChildren.org www.healthychildren.org U.S. Department of Health and Human Services www.hhs.gov Website and free downloadable nadja for smartphones: http://www.TeensSuccess/ Use safety retraint in car Lifestyle On track( 017 10:08 AM CDT) No Alondra Wills MD Note: ?? Seat belt laws should apply to all vehicle occupants documented as of this encounter Visit Diagnoses Not on filedocumented in this encounter
--- OUTSIDE RECORDS SUMMARY | 2024-05-06 06:35 | XMS_ITS | Referral Summary ---
Author Organization [facility] Address [address] [facility] [place] [address] Care Team Providers Care Show Worker Name Role Phone Unavailable Primary Care Provider Unavailabl e Source Comments [facility],non-owned Affiliates and Associated Physician Practices is amultiple site organization consisting of ambulatory clinics and hospital sitesin [place], [place], [place] and [place]. This disclosure is being madepursuant to the Care Everywhere program and may not contain all information available regarding this patient. Last updated 18.[facility] Allergies No known active allergies Medications Be [...] AM CDT Pulse 117 04/24/2016 10:09 AM PULMONARY SPECIALIST Temperature 36.9 ??C (98.4 ??F) 11/21/2016 10:05 AM C DT Respiratory Rate 16 04/24/2016 10:09 AM PULMONARY SPECIALIST Oxygen Saturation - - Inhaled Oxygen Concentration [...] Where can I go for more information? [place] Academy of Pediatrics ( ) www.aap.org HealthyChildren.org www.healthychildren.org U.S. Department of Health and Human Services www.hhs.gov Website and free downloadable nadja for smartphones: http://www.Social Media Gateways/ Use safety retraint in car Lifestyle On track( 017 10:08 AM CDT) Alondra Workman MD Note: ?? Seat belt laws should apply to all vehicle occupants KRISTAN CEJA Personal/Famil y 1995 [address] [place] [address]
--- OUTSIDE RECORDS SUMMARY | 2024-05-06 06:35 | XMS_ITS | Clinical Summary ---
Author Organization [facility] Address [address] [facility] [place] [address] Care Team Providers Care Tumbling Instructor Name Role Phone Unavailable Primary Care Provider Unavailabl e Source Comments [facility],non-owned Affiliates and Associated Physician Practices is amultiple site organization consisting of ambulatory clinics and hospital sitesin [place], [place], [place] and [place]. This disclosure is being madepursuant to the Care Everywhere program and may not contain all information available regarding this patient. Last updated 18.[facility] Normal Allergies No known active allergies Medications Be [...] AM CDT Pulse 117 04/24/2016 10:09 AM TIP OUT WORKER Temperature 36.9 ??C (98.4 ??F) 11/21/2016 10:05 AM C DT Respiratory Rate 16 04/24/2016 10:09 AM TIP OUT WORKER Oxygen Saturation - - Inhaled Oxygen Concentration [...] Where can I go for more information? [place] Academy of Pediatrics ( ) www.aap.org HealthyChildren.org www.healthychildren.org U.S. Department of Health and Human Services www.hhs.gov Website and free downloadable nadja for smartphones: http://www.Aries Cove/ Use safety retraint in car Lifestyle On track( 017 10:08 AM CDT) No Alondra Wills MD Note: ?? Seat belt laws should apply to all vehicle occupants JUNIEKRISTAN Adan Personal/Famil y 1995 [place] [address] [address] [address] [place] [id number]
--- OUTSIDE RECORDS SUMMARY | 2024-05-06 06:36 | XMS_ITS | Encounter Summary ---
Author Organization [facility] Care Team Providers Care Blanking Machine Operator Name Role Phone Provider, None Primary Care Provider Unavailabl e Encounter Details Date Type Department Care Team (Latest Contact Info) Description 07/21/2021 Travel Social History Tobacco Use Types Packs/Day Years Used Date Smoking Tobacco: Never Smokeless Tobacco: Never Comments No Sex and Gender Information Value Date Recorded Sex Assigned at Not on file Legal Sex Female 4:21 PM SENIOR STOCK PLAN ADMINISTRATOR Gender Identity Not on file Sexual Orientation [...] on filedocumented in this encounter Care Teams Blanking Machine Operator Relationship Specialty Start Date End Date Provider, Nicolle NAPIER PCP - General 05/01/21 documented as of this encounter
--- OUTSIDE RECORDS SUMMARY | 2024-05-06 06:36 | XMS_ITS | Encounter Summary ---
Author Organization [facility] Address [address] [facility] [place] [address] Phone Care Team Providers Care Nail Sticker Name Role Phone Unavailable Primary Care Provider Unavailabl e Reason for Visit * Reason Comments Cough Fatigue Sore Throat Encounter Details Date Type Department Care Team (Latest Contact Info) Description 04/30/2021 6:00 PM DORMITORY SUPERVISOR Urgent Care Visit [facility] [address] [place] [address] Bean, Christina Tadeo, FOUNDRY MOLDER, COMMERCIAL BAKER HELPER [address] [place] [address] Exposure to COVID-19 virus (Primary Dx); Cough; Symptoms of upper respiratory infection (URI) Discharge Disposition: Discharged to home or Selfcare Social History Tobacco Use Types Packs/Day Years Used Date Smoking Tobacco: Never Assessed Comments Unknown Sex and Gender Information Value Date Recorded Sex Assigned at Not on file Legal Sex Female 4:21 PM DORMITORY SUPERVISOR Gender Identity Not on file Sexual Orientation Not on file COVID-19 Exposure Response Date Recorded In the last month, have you been in contact with someone who was confirmed or suspected to have Coronavirus / COVID-19? No / Unsure 04/30/2021 4:24 PM DORMITORY SUPERVISOR documented as of this encounter Last Filed Vital Signs Vital Sign Reading Time Taken Comments Blood Pressure 131/82 04/30/2021 5:12 PM DORMITORY SUPERVISOR Pulse 77 04/30/2021 5:12 PM DORMITORY SUPERVISOR Temperature 36.9 ??C (98.4 ??F) 04/30/2021 5:12 PM CS T Respiratory Rate 20 04/30/2021 5:12 PM DORMITORY SUPERVISOR Oxygen Saturation 98% 04/30/2021 5:12 PM DORMITORY SUPERVISOR Inhaled Oxygen Concentration - - Weight 90.7 kg (200 lb) 04/30/2021 5:12 PM DORMITORY SUPERVISOR Height 162.6 cm (5' 4 ) 04/30/2021 5:12 PM DORMITORY SUPERVISOR Body Mass Index 34.33 04/30/2021 5:12 PM DORMITORY SUPERVISOR documented in this encounter Patient Instructions * Patient Instructions* Christina Bean - 04/30/2021 6:00 PM DORMITORY SUPERVISOR Thank you for allowing me to care for you today, below you will find information and instructions about your illness that I hope you find helpful. The treatment you received today at [facility] - was for the care [...] ?? Call the [facility] Line at [phone] ( ) - See information Below ?? Call your primary care doctor ?? Go to the ER ?? [facility] [place] [facility] The Ask [facility] call center [...] provider. If you do not, please call [phone]. LABS/XRAYS: You will only be called with [...] was prescribed, please call the office at [phone]. We may be able to figure out a cheaper option. [facility] DOES NOT AUTHORIZE ANY REFILLS ON PRESCRIPTIONS. YOU WILL NEED TO CALLYOUR PRIMARYCARE DOCTOR IF YOU NEED A REFILL. IF YOU DO NOT HAVE A PRIMARY CARE DOCTOR, WE ENCOURAGE YOU TO FIND ONE. Thank you for choosing [facility]. I hope you start to feel better soon! - Christina CAMPOS, COMMERCIAL BAKER HELPER We are currently recommending self-isolation for those [...] yourself. Get rest and stay hydrated. Take jxya-vyy-rwarfnl medicines, such as acetaminophen, to help you [...] to your local emergency facility: Notify the wet pan operator that you are seeking care for [...] your household. ?? You can visit your [facility], [facility], [place], local, and [facility]'s website to look for the latest [...] clean your hands with an alcohol-based hand diamond die polisher that contains at least 60% alcohol. Clean your hands often ?? Wash your hands often with soap and water for at least 20 seconds. This is especially important after blowing your nose, coughing, or sneezing; going to the bathroom; and before eating or preparing food. ?? Use hand diamond die polisher if soap and water are not available. Use an alcohol-based hand diamond die polisher withat least 60% alcohol, covering all surfaces [...] soap and water or put in the clothing sorter. Clean all high-touch surfaces everyday ?? Clean [...] body fluids on them. ?? Use household front end drupal developer and disinfectants. Clean the area or item [...] Reviewed: 12/30/2020 Elsevier Patient Education ?? 2020 [employer] ITORY SUPERVISOR documented in this encounter Progress Notes * [...] baseline. Motor: No weakness. Gait: Gait normal. ITORY SUPERVISOR * Patito Hdez APRN, CNP - 04/30/2021 [...] PCP, or seek immediate treatment. Thank you ITORY SUPERVISOR documented in this encounter Plan of Treatment Not on file documented as of this encounter Procedures Procedure Name Priority Date/Time Associated Diagnosis Comments SARS-COV-2 BY MOLECULAR Routine 04/30/2021 5:23 PM DORMITORY SUPERVISOR Cough documented in this encounter Results * SARS-COV-2 BY MOLECULAR (04/30/2021 5:23 PM DORMITORY SUPERVISOR) SARSCOV2 NOT DETECTED (Referen ce Range for this test is Not Detected ) [facility] THERMOF[facility] FAST DX 05/03/2021 12:40 AM DORMITORY SUPERVISOR [facility] Comment:This test was perfor med by a RT-PCR method. Other NASAL STRUCTURE / Unknown Non-Phlebotomy Collection / Unknown 04/30/2021 5:23 PM DORMITORY SUPERVISOR 04/30/2021 5:23 PM DORMITORY SUPERVISOR Narrative [facility] - 05/03/2021 12:40 AM DORMITORY SUPERVISOR Authorized Fact Sheets about this test for providers and patients are available at: https://www.fda.gov/medical-devices/ydvmbfvxu-ajnasrocrj-xbfzjsd-devices/emergen -us e-authorizations Christina Bean APRN, CNP MICROBIOLOGY - GENERA L ORDERABLES Final Result [facility] [address] [place] [address], documented in this encounter Visit Diagnoses Diagnosis Exposure to COVID-19 virus- Primary Cough Symptoms of upper respiratory infection (URI) documented in this encounter Additional Health Concerns Infection Onset Date Last Indicated Resolved Time COVID - 19 04/30/2021 04/30/2021 05/20/2021 12:1 6 AM DORMITORY SUPERVISOR documented as of this encounter
--- OUTSIDE RECORDS SUMMARY | 2024-05-06 06:36 | XMS_ITS | Encounter Summary ---
Author Organization [facility] Address [address] [place] [address] Care Team Providers Care Medical Office Assistant Instructor Name Role Phone Unavailable Primary Care Provider Unavailabl e Reason for Visit * Reason Comments Breast Discharge right breast yellowi sh cloudy...left clear greenish colorish Encounter Details Date Type Department Care Team (Late st Contact Info) Description 04/29/2019 1:20 PM CANCER PROGRAM COORDINATOR Office Visit [facility] BREAST SURGERY - [facility] [address] [place] [address] Jhoana Hare MD [address] [address] Nipple discharge (Primary Dx) Social History Tobacco Use Types Packs/Day Years Used Date Smoking Tobacco: Former Cigarettes 0.3 1 0 04/29/2015 - 04/29/2016 Smokeless Tobacco: Never Alcohol Use Standard Drinks/Week Comments Yes 0 (1 standard drink = 0.6 oz pur e alcohol) rarely Sex and Gender Information Value Date Recorded Sex Assigned at Not on file Gender Identity Not on file Sexual Orientation Not on file documented as of this encounter Last Filed Vital Signs Vital Sign Reading Time Taken Comments Blood Pressure 102/76 04/29/2019 1:44 PM CANCER PROGRAM COORDINATOR Pulse - - Temperature - - Respiratory Rate - - Oxygen Saturation - - Inhaled Oxygen Concentration - - Weight 93 kg (205 lb) 04/29/2019 1:44 PM CANCER PROGRAM COORDINATOR Height 162.6 cm (5' 4 ) 04/29/2019 1:44 PM CANCER PROGRAM COORDINATOR Body Mass Index 35.19 04/29/2019 1:44 PM CANCER PROGRAM COORDINATOR documented in this encounter Progress Notes * Jhoana Hare MD - 04/29/2019 1:26 PM CST PATIENT: Dylan Ceja : 1995 DATE: 04/29/2019 Dylan Ceja is a 23 y.o. female. She is referred by Dr. Alyssa Christina because of 2-week history of bilateral breast pain and bilateral nipple discharge. The discharge is clear, green and yellowish in color. It comes out when she squeezes. She is currently menstruating.. . She denies prior breast surgeries or biopsies. She is 1. She was 14 at menarche. Paternal grandmother, paternal aunts and paternal great grandmother have had breast cancer. She is unsure of their ages.. 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 She is single. She does not drink. She quit smoking 3 years ago. She is here today with her mother. 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 PMH: No past medical history on file. PSH: No past surgical history on file. ALLERGY: Allergies not on file MEDS: No current outpatient medications on file. No current facility-administered medications for this visit. FHX: No family history on file. SOC: Social History Socioeconomic History ??? Marital status: Single Spouse name: Not on file ??? Number of children: Not on file ??? Years of education: Not on file ??? Highest education level: Not on file Occupational History ??? Not on file Social Needs ??? Financial resource strain: Not on file ??? Food insecurity: Worry: Not on file Inability: Not on file ??? Transportation needs: Medical: Not on file Non-medical: Not on file Tobacco Use ??? Smoking status: Not on file Substance and Sexual Activity ??? Alcohol use: Not on file ??? Drug use: Not on file ??? Sexual activity: Not on file Lifestyle ??? Physical activity: Days per week: Not on file Minutes per session: Not on file ??? Stress: Not on file Relationships ??? Social connections: Talks on phone: Not on file Gets together: Not on file Attends caodaism service: Not on file Active member of club or organization: Not on file Attends meetings of clubs or organizations: Not on file Relationship status: Not on file ??? Intimate partner violence: Fear of current or ex partner: Not on file Emotionally abused: Not on file Physically abused: Not on file Forced sexual activity: Not on file Other Topics Concern ??? Not on file Social History Narrative ??? Not on file ROS: Unremarkable Constitutional: Negative for fever, weight loss and malaise/fatigue. Respiratory: Negative for cough. Cardiovascular: Negative for chest pain and leg swelling. Gastrointestinal:. Negative for abdominal pain. Genitourinary: Negative for dysuria. Musculoskeletal: Negative for myalgias and joint pain. Skin: Negative for rash. Neurological: Negative for dizziness and headaches. Psychiatric/Behavioral: Negative for depression Endocrine: Negative for diabetes, negative for thyroid dysfunction Hematologic: Negative for anemia, bleeding disorders, HIV/AIDS BP 102/76 Ht 5' 4 (1.626 m) Wt 93 kg (205 lb) LMP 04/27/2019 No BMI 35.19 kg/m?? PHYSICAL EXAM: Physical Exam Constitutional: She is oriented to person, place, and time and well-developed, well-nourished, and in no distress. No distress. HENT: Head: Normocephalic and atraumatic. Eyes: Pupils are equal, round, and reactive to light. Neck: Normal range of motion. Cardiovascular: Normal rate and regular rhythm. Pulmonary/Chest: Effort normal and breath sounds normal. No respiratory distress. Abdominal: Soft. She exhibits no mass. Musculoskeletal: Normal range of motion. General: No deformity. Lymphadenopathy: She has no cervical adenopathy. Neurological: She is alert and oriented to person, place, and time. Gait normal. Skin: Skin is warm and dry. Psychiatric: Mood, affect and judgment normal. Vitals reviewed. Axilla-there is no adenopathy Breasts -nipples are everted. There are no dominant masses. There is greenish discharge from multiple ducts on both sides Right breast:normal in appearance, no masses, skin changes or nipple discharge Left breast: normal in appearance, no masses, skin changes or nipple discharge IMAGING: Outside films are reviewed. Bilateral breast ultrasound: 04/22/2019. At [facility]. There is a 6 mm simple cyst at 11:00 left breast. Otherwise no masses IMPRESSION /PLAN: 23 y.o. woman who presents with concerns about bilateral breast pain and discharge I have personally examined her and have reviewed her bilateral breast ultrasound today There is no clinical or radiologic evidence of malignancy I explained to her that the breast pain and discharge is physiologic related to hormonal changes We consider this fibrocystic breast pain I explained that this is not a malignancy nor does business process architect to malignancy She will return to monthly self breast exams and continue annual clinical exams with her agricultural economist or PCP She should start annual mammography 10 years younger than her relatives with breast cancer or age 40 per [place] Cancer [employer] guidelines. She is encouraged to see me back as needed if any new problems arise. The patient is asked to make an attempt to improve diet and exercise patterns to aid in breast cancer risk reduction. More than 50% of today's office visit time was spent in [id number] discussion and coordination ofcare All of her questions are answered today to her satisfaction TOBACCO COUNSELING She is not a tobacco user. Jhoana Hare MD.FACS. cc: No referring provider defined for this encounter. ER PROGRAM COORDINATOR documented in this encounter Plan of Treatment Not on file documented as of this encounter Visit Diagnoses Diagnosis Nipple discharge- Primary Other sign and symptom in breast documented in this encounter
--- OUTSIDE RECORDS SUMMARY | 2024-05-06 06:36 | XMS_ITS | Encounter Summary ---
Author Organization [facility] Address [address] [place] [address] Care Team Providers Care High School Math Teacher Name Role Phone Unavailable Primary Care Provider Unavailabl e Encounter Details Date Type Department Care Team (Late st Contact Info) Description 05/23/2019 Orders Only [facility] [address] [facility] [facility] [address] [place] [address] Provider, Abstract NO ADDRESS ON FILE Social History Tobacco Use Types Packs/Day Years [...] Procedure Name Priority Date/Time Associated Diagnosis Comments US BREAST Routine 04/22/2019 documented in this encounter Results * US BREAST (04/22/2019) Anatomical Region Laterality Modality Other Abstract Provider US ORDERABLES documented in this encounter Visit Diagnoses Not on filedocumented in this encounter
--- OUTSIDE RECORDS SUMMARY | 2024-05-06 06:36 | XMS_ITS | Continuity of Care Document ---
Author Organization [facility] Address [address] [facility] [place] [address] Phone Care Team Providers Care Web Merchant Name Role Phone Geovani Valerio DO Unavailable Unavailable Advance Directives Directive Yes / No Effective Date File Name No Information Encounters Encounter Description Practice Location Reason(s) For Visit Diagnoses Date Provider Providers Copied on Encounter [facility], [address], [place], [place], [id number], [place] [phone] [facility] No Information Iman Streeter. [address] [facility], [place], [address], [place]. tel: [phone] Family History Family Member Type Diagnosis Age At Onset No Information Payers Payer name Insurance type Covered libertarian ID Authoriza tion(s) No Information Social History [...]
--- OUTSIDE RECORDS SUMMARY | 2024-05-06 06:36 | XMS_ITS | Encounter Summary ---
Author Organization [facility] Care Team Providers Care Manager Order Name Role Phone Unavailable Primary Care Provider Unavailabl e Encounter Details Date Type Department Care Team (Latest Contact Info) Description 04/30/2021 Travel Social History Tobacco Use Types Packs/Day Years Used Date Smoking Tobacco: Never Assessed Comments Unknown Sex and Gender Information Value Date Recorded Sex Assigned at Not on file Legal Sex Female 4:21 PM TELEMETRY NURSE Gender Identity Not on file Sexual Orientation Not on file COVID-19 Exposure Response Date Recorded In the last month, have you been in contact with someone who was confirmed or suspected to have Coronavirus / COVID-19? No / Unsure 04/30/2021 4:24 PM TELEMETRY NURSE documented as of this encounter Plan of Treatment Not on file documented as of this encounter Visit Diagnoses Not on filedocumented in this encounter Additional Health Concerns Infection Onset Date Last Indicated Resolved Time COVID - 19 04/30/2021 04/30/2021 05/20/2021 12:1 6 AM TELEMETRY NURSE documented as of this encounter
--- OUTSIDE RECORDS SUMMARY | 2024-05-06 06:36 | XMS_ITS | Encounter Summary ---
Author Organization [facility] Address [address] [place] [address] Care Team Providers Care Business Law Professor Name Role Phone Unavailable Primary Care Provider Unavailabl e Encounter Details Date Type Department Care Team (Latest Contact Info) Description 04/22/2019 11:20 AM ELEMENT SETTER - 04/22/2019 11:59 PM ELEMENT SETTER Hospital Encounter [facility] [address] [place] [address] [facility], External Provider [address] [place] [address] Discharge Disposition: Home or Self Care Social History Tobacco Use Types Packs/Day Years Used Date Smoking Tobacco: Never Assessed Sex and Gender Information Value Date Recorded Sex Assigned at Not on file Gender Identity Not on file Sexual Orientation Not on file documented as of this encounter Plan of Treatment Not on file documented as of this encounter Procedures Procedure Name Priority Date/Time Associated Diagnosis Comments MAMMO PRIOR STUDY Routine 04/22/2019 11: 20 AM ELEMENT SETTER Follow up documented in this encounter Results * MAMMO PRIOR STUDY (04/22/2019 11:20 AM ELEMENT SETTER) Narrative 04/30/2019 11:20 AM ELEMENT SETTER This exam was auto finalized to allow images to be scanned to PACS. External Provider [facility] DIAGNOSTIC IMAGI NG ORDERABLES documented in this encounter Visit Diagnoses Diagnosis Follow up documented in this encounter
--- OUTSIDE RECORDS SUMMARY | 2024-05-06 06:36 | XMS_ITS | Encounter Summary ---
Author Organization [facility] Address [address] [place] [address] Phone Care Team Providers Care Transplanter Orchid Name Role Phone Provider, None Primary Care Provider Unavailabl e Encounter Details Date Type Department Care Team (Late st Contact Info) Description 07/23/2021 Telephone [facility] [address] [place] [address] Maria De Jesus Snider, STICKER HAND, REFINERY OPERATOR VISBREAKING [address] [place] [address] Social History Tobacco Use Types Packs/Day Years Used Date Smoking Tobacco: Never Smokeless Tobacco: Never Comments No Sex and Gender Information Value Date Recorded Sex Assigned at Not on file Legal Sex Female 4:21 PM NEUROLOGY TEACHER Gender Identity Not on file Sexual Orientation [...] on filedocumented in this encounter Care Teams Transplanter Orchid Relationship Specialty Start Date End Date Provider, None [place] PCP - General 05/01/21 documented as of this encounter
--- OUTSIDE RECORDS SUMMARY | 2024-05-06 06:36 | XMS_ITS | Clinical Summary ---
Author Organization [facility] Address [address] [place] [address] Care Team Providers Care Expedition Supervisor Name Role Phone Provider, None Primary Care [...] on file Legal Sex Female 4:21 PM DISH UP PERSON Gender Identity Not on file Sexual Orientation [...] patient's age to complete this topic Insurance [facility] Care Teams Expedition Supervisor Relationship Specialty Start Date End Date Provider, None KARTHIKEYAN PCP - General 05/01/21
--- OUTSIDE RECORDS SUMMARY | 2024-05-06 06:36 | XMS_ITS | Clinical Summary ---
Author Organization [facility] Address [address] [place] [address] Phone Care Team Providers Care Animal Damage Control Agent Name Role Phone Unavailable Primary Care Provider Unavailabl e Allergies Active Allergy Reactions Criticality Noted Date Comments Nickel Rash Low 04/29/2019 Medications No known medications Active Problems Patient Care Coordination No te Formatting of this note migh t be different from the original. Primary Care: No primary care provider on file. Referring Provider: No referring provider defined for this encounter. Other: No known active problems Family History Medical History Relation Name Comments Breast Cancer Other patggmother 42 deceaased Breast Cancer Paternal Aunt Breast Cancer Paternal Grandmother deceas ed 48 Colon Cancer Paternal Grandmother not leonel e age Ovarian Cancer Paternal Grandmother not s ure age Relation Name Status Comments Other patggmother Paternal Aunt Paternal Grandmother Social History Tobacco Use Types Packs/Day Years [...] Comments Blood Pressure 102/76 04/29/2019 1:44 PM CONTRACT PREPARER Pulse - - Temperature - - Respiratory Rate - - Oxygen Saturation - - Inhaled Oxygen Concentration - - Weight 93 kg (205 lb) 04/29/2019 1:44 PM CONTRACT PREPARER Height 162.6 cm (5' 4 ) 04/29/2019 1:44 PM CONTRACT PREPARER Body Mass Index 35.19 04/29/2019 1:44 PM CONTRACT PREPARER Plan of Treatment Health Maintenance Due Date Last Done Comments CERVICAL CANCER SCREENING 2017 INFLUENZA VACCINE (#1) 2023 DTAP/TDAP/TD VACCINES (3 - T d or Tdap) 11/21/2026 11/21/2016, 11/10/2006 HEPATITIS B VACCINES Completed 05/23/1997, 1996, 1996 HPV VACCINES Aged Out No longer eligi ble based on patient's age to complete this topic PNEUMOCOCCAL VACCINE 0-64 YEARS Aged Out No longer eligible b ased on patient's age to complete this topic
--- OUTSIDE RECORDS SUMMARY | 2024-05-06 06:36 | XMS_ITS | Encounter Summary ---
Author Organization [facility] Address [address] [address] Care Team Providers Care Clinical Research Monitor Name Role Phone Anika Bob MD Unavailable Anika Bob MD Primary Care Provider [phone] Encounter Details Date Type Department Care Team (Late st Contact Info) Description 11/03/1999 Orders Only [facility] - [address] [address] ProviderKurtis MD Social History Tobacco [...] AM CDT) Result CASE NUMBER [id number] [facility] PATH REPORT Comment: ORDERING PHYSICIAN ??ARIELLA [...] Historical Provider LAB - PATHOLOGY/C YTOLOGY ORDERABLES [facility] PATH REPORT documented in this encounter Visit Diagnoses Not on filedocumented in this encounter Care Teams Clinical Research Monitor Relationship Specialty Start Date End Date Anika Bob MD PCP - Pediatrics 03/26/09 10/07/14 Anika Bob MD PCP - General Pediatrics 10/04/11 10/06/14 documented as of this encounter
--- OUTSIDE RECORDS SUMMARY | 2024-05-06 06:36 | XMS_ITS | Encounter Summary ---
Author Organization [facility] Address [address] [place] [address] Phone Care Team Providers Care Mannequin Decorator Name Role Phone Provider, None Primary Care Provider Unavailabl e Reason for Visit * Reason Comments Laceration Encounter Details Date Type Department Care Team (Late st Contact Info) Description 07/21/2021 2:30 PM CDT Urgent Care Visit [facility] [address] [place] [id number] Maria De Jesus Snider, HOPPER FEEDER, 8TH GRADE TEACHER [address] [place] [address] Avulsion of skin of middle finger, initial encounter (Primary Dx) Discharge Disposition: Discharged to home or Selfcare Social History Tobacco Use Types Packs/Day Years Used Date Smoking Tobacco: Never Smokeless Tobacco: Never Comments No Sex and Gender Information Value Date Recorded Sex Assigned at Not on file Legal Sex Female 4:21 PM FINANCIAL RESERVE CLERK Gender Identity Not on file Sexual [...] Patient Instructions* Maria De Jesus Snider APRN, 8TH GRADE TEACHER - 07/21/2021 2:30 PM CDT Images from the original note were not included. Thank you for allowing me to care for you today, below you will find information and instructions about your illness that I hope you find helpful: The treatment you got today at [facility] was for the care of your urgent [...] the medication that was prescribed, please call [phone]. We may be able to figure out a cheaper option. [facility] STAFF DOES NOT AUTHORIZE ANY REFILLS ON PRESCRIPTIONS. YOU WILL NEED TO CALLYOUR PRIMARY CARE DOCTOR IF YOU NEED A REFILL. IF YOU DO NOT HAVE A PRIMARY CARE DOCTOR, WE ENCOURAGE YOU TO FIND ONE. Thank you for choosing [facility]. I hope you start to feel better [...] and water are not available, use hand end user support specialist. ? Leave tape or skin adhesive strips [...] has healed. Medicines ?? Take or apply pyxd-cnj-jopoqgx and prescription medicines only as told by [...] health care provider. ?? Take or apply sxwb-xyn-fcgdzut and prescription medicines only as told by your health care provider. ?? Contact a health care provider if you have signs of infection. This information is not intended to replace advice given to you by your health care provider. Make sure you discuss any questions you have with your health care provider. Document Revised: 07/15/2020 Document Reviewed: 07/15/2020 [employer]ante Patient Education ?? 2020 Package Concierge. documented in this encounter Progress Notes * [...] - REPAIR SIMPLE WOUND BODY /SCALP/NECK <2.5CM [32081] ??? The patient looks well in clinic and non-toxic. No red flag findings on examination ??? History and physical is most consistent with avulsion of skin of left middle finger ??? The patient purchased Keflex in clinic via [employer]. ??? Area Cleansed and Steri-Strips placed (see [...] today. 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
--- OUTSIDE RECORDS SUMMARY | 2024-05-06 06:36 | XMS_ITS | Encounter Summary ---
Author Organization [facility] Address [address] [facility] [place] [address] Phone Care Team Providers Care Fuels Engineer Name Role Phone Provider, None Primary Care Provider Unavailabl e Reason for Visit * Reason Onset Date Comments Results 05/03/2021 Encounter Details Date Type Department Care Team (Late st Contact Info) Description 05/03/2021 Telephone [facility] [address] [place] [address] Patito Hdez APRN, GRAFFITI CLEANER [address] [place] [address] Results Social History Tobacco Use Types Packs/Day Years Used Date Smoking Tobacco: Never Assessed Comments Unknown Sex and Gender Information Value Date Recorded Sex Assigned at Not on file Legal Sex Female 4:21 PM HARPOON ENGAGEMENT PLANNING OPERATOR Gender Identity Not on file Sexual Orientation Not on file COVID-19 Exposure Response Date Recorded In the last month, have you been in contact with someone who was confirmed or suspected to have Coronavirus / COVID-19? No / Unsure 04/30/2021 4:24 PM HARPOON ENGAGEMENT PLANNING OPERATOR documented as of this encounter Miscellaneous Notes * Telephone Encounter - Lillian Linares - 05/03/2021 9:00 AM CST Called patient with results. No questions or concerns at this time OON ENGAGEMENT PLANNING OPERATOR * Telephone Encounter - Lillian Linares - 05/03/2021 8:59 AM CST ----- Message from Patito Hdez APRN, GRAFFITI CLEANER sent at 05/03/2021 7:35 AM HARPOON ENGAGEMENT PLANNING OPERATOR ----- Please notify patient/parent of non-detected COVID-19 result. Due to their symptoms it is our recommendations that they follow CDC guidelines for quarantine of COVID-19 like illness. If their symptoms are worsening, fail to improve, or they are with new symptoms please have them return to clinic, follow up with PCP, or seek immediate treatment. Thank you OON ENGAGEMENT PLANNING OPERATOR documented in this encounter Plan of Treatment Not on file documented as of this encounter Visit Diagnoses Not on filedocumented in this encounter Additional Health Concerns Infection Onset Date Last Indicated Resolved Time COVID - 19 04/30/2021 04/30/2021 05/20/2021 12:1 6 AM HARPOON ENGAGEMENT PLANNING OPERATOR documented as of this encounter Care Teams Fuels Engineer Relationship Specialty Start Date End Date Provider, None [place] PCP - General 05/01/21 documented as of this encounter
== END 2024-04-29 21:43 | disposition home or self-care (01) ==
PROVIDERS: Emergency Provider Physician Assistant; PCP Family Medicine
DX: S93.402A Sprain of unspecified ligament of left ankle, initial encounter (principal); S96.912A Strain of unspecified muscle and tendon at ankle and foot level, left foot, initial encounter; E55.9 Vitamin D deficiency, unspecified; G47.33 Obstructive sleep apnea (adult) (pediatric); F41.9 Anxiety disorder, unspecified; Z87.891 Personal history of nicotine dependence; Z79.899 Other long term (current) drug therapy; W10.9XXA Fall (on) (from) unspecified stairs and steps, initial encounter
CPT/HCPCS: 73610; 99283; A9270